=== PATIENT | female | born 1980 | race American Indian/Alaskan Native ===

== ENCOUNTER 2019-10-09 15:36 | Emergency (ER) | payer SELFPAY | END 2019-10-09 16:02 | disposition left against medical advice (07) | LOC: ED 15:36 | DX: R51 Headache (principal); Z53.21 Procedure and treatment not carried out due to patient leaving prior to being seen by health care provider ==

== ENCOUNTER 2020-02-07 20:38 | Emergency (ER) | payer MEDICAID ==
[2020-02-07 22:04] LABS: Basophils # (Auto) 0.1 K/mm3 (0.0-0.1); Basophils % (Auto) 0.8 % (0.0-1.8); Eosinophils # (Auto) 0.4 K/mm3 (0.0-0.4); Eosinophils % (Auto) 3.4 % (0.0-4.3); Hematocrit 34.7 % (30.3-42.9); Hemoglobin 11.5 gm/dl (10.1-14.3); Lymphocytes # (Auto) 3.6 K/mm3 (1.2-5.4); Lymphocytes % (Auto) 30.5 % (13.4-35.0); Mean Corpuscular HGB Conc 33 % (30-34); Mean Corpuscular Volume 85 fl (79-97); Monocytes # (Auto) 0.6 K/mm3 (0.0-0.8); Monocytes % (Auto) 5.3 % (0.0-7.3); Platelet Count 333 K/mm3 (140-440); Red Blood Count 4.08 M/mm3 (3.65-5.03); Red Cell Distribution Width 13.4 % (13.2-15.2)
[2020-02-07 22:59] LABS: Bilirubin,Urine NEG (Negative); Blood,Urine LG (Negative); Color,Urine Amber (Yellow); Mucus,Urine 2+ /HPF
[2020-02-08] MEDS ORDERED: ONDANSETRON 4 MG/2 ML INJ IV ONE (00:46)
[2020-02-08] MEDS ORDERED: SODIUM CHLORIDE 0.9% 1000 ML 1,000 ML IV ONE (00:46)
[2020-02-08] MEDS ORDERED: cefTRIAXone/NS 1 GM/50 ML 1 GM/50 ML BAG IV ONE (00:46)
[2020-02-08] MEDS ORDERED: MORPHINE 4 MG/1 ML INJ IV ONE (00:46)
--- NOTE | 2020-02-08 02:11 | Ultrasound Report ---
US OB <= 14 weeks fetus INDICATION / CLINICAL INFORMATION: Vaginal bleeding pain. COMPARISON: None available. FINDINGS: Uterus measures 7.9 x 3.8 x 6.4 cm. No intrauterine gestational sac is seen. The endometrial echo com plex measures 7-8 mm. There is a 1.5 cm right ovarian cyst. Left ovary is not visualized. No free fluid is seen. IMPRESSION: 1. No sonographic evidence of intrauterine . No adnexal lesions or free fluid. Signer Name: Jason Rutherford MD Signed: 02/08/2020 2:07 AM Workstation Name: [id number]
--- NOTE | 2020-02-08 02:24 | Emergency Department Report ---
ED Female HPI - General Chief complaint: Abdominal Pain Stated complaint: ABD PAIN/VAGINAL BLEEDING Time Seen by Provider: 02/08/20 00:45 Source: patient Mode of arrival: Ambulatory Limitations: No Limitations - History of Present Illness Initial comments: Patient is a 39-year-old female who presents for abdominal pain status post spontaneous 5 days ago. Patient states she was visiting family in [facility]. Had spontaneous in [place]. Did have a D&C on that date. States intermittent bleeding presents with abdominal cramping. Patient does have history of ovarian cyst. Pain is described as 7/10 aching sharp crampy. Patient advises not been sexually active since procedure. There is no urinary retention ,frequency ,urgency, or back pain noted. She denies fevers or chills. Patient is tolerating p.o. intake. Patient has upcoming [facility] appointment. MD Complaint: vaginal bleeding Onset/Timin -: days(s) Location: suprapubic Radiation: suprapubic Severity: moderate Severity scale (0 -10): 5 Quality: aching Consistency: constant Improves with: none Worsens with: movement Are you Now?: No Associated Symptoms: vaginal bleeding, abdominal pain - Related Data Sexually active: No : 2 Para: 0 A: 2 Previous Rx's Medication Instructions Recorded Last Taken Type Acetaminophen/Codeine [Tylenol #3] 1 tab PO Q6H PRN #20 tab 06/18/15 Unknown Rx Ibuprofen [Motrin 800 MG tab] 800 mg PO Q8HR PRN #30 tablet 06/18/15 Unknown Rx Acetaminophen/Codeine [Tylenol 1 tab PO Q6H PRN #12 tab 02/08/20 Unknown Rx /Codeine # 3 tab] Nitrofurantoin Petroleum/M-Cryst 100 mg PO Q12HR 7 Days #14 capsule 02/08/20 Unknown Rx [Macrobid CAP] Allergies Allergy/AdvReac Type Severity Reaction Status Date / Time ibuprofen Allergy Bleeding Verified 10/09/19 15:38 tramadol Allergy Itching Verified 10/09/19 15:38 ED Review of Systems ROS: Stated complaint: ABD PAIN/VAGINAL BLEEDING Other details as noted in HPI Constitutional: denies: chills, fever Eyes: denies: eye pain, eye discharge, vision change ENT: denies: ear pain, throat pain Respiratory: denies: cough, shortness of breath, wheezing Cardiovascular: denies: chest pain, palpitations Endocrine: no symptoms reported Gastrointestinal: abdominal pain. denies: nausea, vomiting, diarrhea Genitourinary: abnormal menses. denies: urgency, dysuria, frequency, hematuria, discharge Musculoskeletal: denies: back pain, joint swelling, arthralgia Skin: denies: rash, lesions Neurological: denies: headache, weakness, paresthesias Psychiatric: denies: anxiety, depression Hematological/Lymphatic: denies: easy bleeding, easy bruising ED Past Medical Hx - Past Medical History Previous Medical History?: Yes Hx Asthma: Yes Additional medical history: Fibromyalgia - Surgical History Past Surgical History?: Yes Additional Surgical History: x 2 - Social History Smoking Status: Current Every Day Smoker Substance Use Type: None - Medications Home Medications: Home Medications Medication Instructions Recorded Confirmed Last Taken Type Acetaminophen/Codeine [Tylenol #3] 1 tab PO Q6H PRN #20 tab 06/18/15 Unknown Rx Ibuprofen [Motrin 800 MG tab] 800 mg PO Q8HR PRN #30 tablet 06/18/15 Unknown Rx Acetaminophen/Codeine [Tylenol 1 tab PO Q6H PRN #12 tab 02/08/20 Unknown Rx /Codeine # 3 tab] Nitrofurantoin Petroleum/M-Cryst 100 mg PO Q12HR 7 Days #14 capsule 02/08/20 Unknown Rx [Macrobid CAP] ED Physical Exam - General Limitations: No Limitations General appearance: alert, in no apparent distress - Head Head exam: Present: atraumatic, normocephalic - Eye Eye exam: Present: normal appearance, EOMI Pupils: Present: normal accommodation - ENT ENT exam: Present: mucous membranes moist - Neck Neck exam: Present: normal inspection, full ROM. Absent: tenderness - Respiratory Respiratory exam: Present: normal lung sounds bilaterally. Absent: respiratory distress, wheezes, stridor - Cardiovascular Cardiovascular Exam: Present: regular rate, normal rhythm, normal heart sounds. Absent: systolic murmur, diastolic murmur, rubs, gallop - GI/Abdominal GI/Abdominal exam: Present: soft, tenderness (LLQ ), normal bowel sounds. Absent: distended, guarding, rebound, rigid, bruit, hernia - Rectal Rectal exam: Present: deferred - Extremities Exam Extremities exam: Present: normal inspection, normal capillary refill - Back Exam Back exam: Present: normal inspection, full ROM. Absent: tenderness, CVA tenderness (R), CVA tenderness (L), vertebral tenderness - Neurological Exam Neurological exam: Present: alert, oriented X3, CN II-XII intact, normal gait - Psychiatric Psychiatric exam: Present: normal affect, normal mood - Skin Skin exam: Present: warm, dry, intact, normal color. Absent: rash ED Course Vital Signs 02/07/20 21:26 Temperature 98.6 F Pulse Rate 92 H Respiratory 18 Rate Blood Pressure 150/84 O2 Sat by Pulse 100 Oximetry ED Medical Decision Making - Lab Data Result diagrams: 02/07/20 21:47 Labs 02/07/20 02/07/20 02/07/20 21:47 21:47 22:33 WBC 11.9 H RBC 4.08 Hgb 11.5 Hct 34.7 MCV 85 MCH 28 MCHC 33 RDW 13.4 Plt Count 333 Lymph % (Auto) 30.5 Petroleum % (Auto) 5.3 Eos % (Auto) 3.4 Baso % (Auto) 0.8 Lymph # 3.6 Petroleum # 0.6 Eos # 0.4 Baso # 0.1 Seg Neutrophils % 60.0 Seg Neutrophils # 7.1 HCG, Quant 925.9 H Urine Color Pamela Urine Turbidity Slightly-cloudy Urine pH 5.0 Ur Specific Frohna 1.028 Urine Protein 30 mg/dl Urine Glucose (UA) Neg Urine Ketones Tr Urine Blood Lg Urine Nitrite Neg Urine Bilirubin Neg Urine Urobilinogen 2.0 Ur Leukocyte Esterase Mod Urine WBC (Auto) 33.0 H Urine RBC (Auto) 50.0 U Epithel Cells (Auto) 6.0 Urine Mucus 2+ - Radiology Data Radiology results: report reviewed, image reviewed Findings Reporting MD: Jason Rutherford Dictation Time: February 08, 2020 01:07 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 COMPARISON: None available. FINDINGS: Uterus measures 7.9 x 3.8 x 6.4 cm. No intrauterine gestational sac is seen. The endometrial echo complex measures 7-8 mm. There is a 1.5 cm right ovarian cyst. Left ovary is not visualized. No free fluid is seen. IMPRESSION: 1. No sonographic evidence of intrauterine . No adnexal lesions or free fluid. Signer Name: Jason Rutherford MD Signed: 02/08/2020 1:07 AM Workstation Name: [id number] - Medical Decision Making Ultrasound normal no no mass. No ultrasound evidence of retained parts. UA noted for leukocytes, WBCs, RBCs. Patient treated for UTI. There is no fever no chills. Patient did declined vaginal exam. Advises will follow-up with [facility] in 2 days. Plan DC to home with prescriptions , patient verbalizes agreement and understanding of discharge plan. Critical care attestation.: If time is entered above; I have spent that time in minutes in the direct care of this critically ill patient, excluding procedure time. ED Disposition Clinical Impression: UTI (urinary tract infection) Qualifiers: Urinary tract infection type: acute cystitis Hematuria presence: without hematuria Qualified Code(s): N30.00 - Acute cystitis without hematuria Abdominal pain Qualifiers: Abdominal location: left lower quadrant Qualified Code(s): R10.32 - Left lower quadrant pain Disposition: DC-01 TO HOME OR SELFCARE Is pt being admited?: No Does the pt Need Aspirin: No Condition: Stable Instructions: Urinary Tract Infection in Women (ED), Acute Abdominal Pain (ED) Prescriptions: Nitrofurantoin Petroleum/M-Cryst [Macrobid CAP] 100 mg PO Q12HR 7 Days #14 capsule Acetaminophen/Codeine [Tylenol /Codeine # 3 tab] 1 tab PO Q6H PRN #12 tab PRN Reason: pain Referrals: [facility] [Provider Group] - 3-5 Days Forms: Work/School Release Form(ED) Time of Disposition: 02:33
[2020-02-08 03:42] VITALS: BP 139/86
== END 2020-02-08 02:45 | disposition home or self-care (01) ==
LOC: ED 20:38
DX: N39.0 Urinary tract infection, site not specified (principal); R10.2 Pelvic and perineal pain; J45.909 Unspecified asthma, uncomplicated; F17.200 Nicotine dependence, unspecified, uncomplicated; Z98.890 Other specified postprocedural states; Z79.1 Long term (current) use of non-steroidal anti-inflammatories (NSAID); Z79.899 Other long term (current) drug therapy; Z88.8 Allergy status to other drugs, medicaments and biological substances
CPT/HCPCS: 36415; 76801; 81001; 84702; 85025; 87086; 96365; 96375; 99284; J0696; J2270; J2405; J7030

== ENCOUNTER 2020-02-27 10:27 | Emergency (ER) | payer MEDICAID ==
--- NOTE | 2020-02-27 10:36 | Event Note ---
ED Screening Note ED Screening Note: 39-year-old female smoker with past medical history of pulmonary embolism and asthma reports a 3-day history of progressively worsening shortness of breath with associated lower extremity swelling and calf pain. Has not tried to take any at home medication does not have any albuterol. Presents to the emergency department breathless with dyspnea tachycardic speaking in partial sentences Lungs no wheezing but decreased breath sounds Heart tachycardic Case was discussed with the charge nurse there were no rooms are available we will place her in the ACC on monitor This initial assessment/diagnostic orders/clinical plan/treatment(s) is/are subject to change based on patients health status, clinical progression and re- assessment by fellow clinical providers in the ED. Further treatment and workup at subsequent clinical providers discretion. Patient/guardian urged not to elope from the ED as their condition may be serious if not clinically assessed and managed. Initial orders include:
[2020-02-27] MEDS ORDERED: IPRATROPIUM/ALBUTEROL SULFATE 3 ML AMPUL.NEB IH ONE (10:37)
[2020-02-27] MEDS ORDERED: dexAMETHasone 4 MG/ML VIAL IM ONE (10:37)
[2020-02-27] MEDS ORDERED: methylPREDNISolone Sod Succinate 125 MG/2 ML INJ IV ONE (10:50)
[2020-02-27] MEDS ORDERED: SODIUM CHLORIDE 0.9% 1000 ML 1,000 ML IV ONE (11:01)
--- NOTE | 2020-02-27 11:02 | Emergency Department Report ---
HPI - General Chief Complaint: Dyspnea/Respdistress Time Seen by Provider: 02/27/20 10:49 - HPI HPI: This is a 39-year-old female presents to the emergency department from home with complaint of a 2-day history of shortness of breath, wheezing, chest pain, and the patient says that she has been having some intermittent lower extremity leg swelling. She has a past medical history of asthma and is a tobacco smoker. She denies any illicit drug use. She says that at first she thought she was having gas pains so she tried some [id number] treatments for gas without any relief. Her shortness of breath worsens with exertion and her chest discomf ort worsens with respirations. No recent travel or sick contacts at home. No known exposure to anyone with Covid 19. ED Past Medical Hx - Past Medical History Previous Medical History?: Yes Hx Asthma: Yes Additional medical history: Fibromyalgia - Surgical History Past Surgical History?: Yes Additional Surgical History: x 2 - Social History Smoking Status: Current Every Day Smoker Substance Use Type: None - Medications Home Medications: Home Medications Medication Instructions Recorded Confirmed Last Taken Type Acetaminophen/Codeine [Tylenol #3] 1 tab PO Q6H PRN #20 tab 06/18/15 Unknown Rx Ibuprofen [Motrin 800 MG tab] 800 mg PO Q8HR PRN #30 tablet 06/18/15 Unknown Rx Acetaminophen/Codeine [Tylenol 1 tab PO Q6H PRN #12 tab 02/08/20 Unknown Rx /Codeine # 3 tab] Nitrofurantoin Addison/M-Cryst 100 mg PO Q12HR 7 Days #14 capsule 02/08/20 Unknown Rx [Macrobid CAP] ED Review of Systems ROS: Stated complaint: SOB/ASTHMA Other details as noted in HPI Comment: All other systems reviewed and negative Constitutional: denies: chills, fever Eyes: denies: eye pain, vision change ENT: denies: ear pain, throat pain Respiratory: cough, shortness of breath Cardiovascular: chest pain, edema Gastrointestinal: denies: abdominal pain, vomiting Genitourinary: denies: dysuria, discharge Musculoskeletal: denies: back pain, arthralgia Skin: denies: rash, lesions Neurological: denies: numbness, paresthesias Physical Exam - Physical Exam Vital Signs: Vital Signs 02/27/20 10:30 Temperature 97.9 F Pulse Rate 117 H Respiratory 20 Rate Blood Pressure 134/98 [Left] O2 Sat by Pulse 100 Oximetry Physical Exam: GENERAL: The patient is well-developed well-nourished. HENT: Normocephalic. Atraumatic. Patient has moist mucous membranes. EYES: Extraocular motions are intact. NECK: Supple. Trachea is midline. CHEST/LUNGS: Clear to auscultation. There is tachypnea but no accessory muscle use. No cough heard during examination. There is no respiratory distress noted. HEART/CARDIOVASCULAR: Regular. There is mild to moderate tachycardia. There is no murmur. ABDOMEN: Abdomen is soft, nontender. Patient has normal bowel sounds. SKIN: Skin is warm and dry. NEURO: The patient is awake, alert, and oriented. The patient is cooperative. The patient has no focal neurologic deficits. Normal speech. MUSCULOSKELETAL: There is no tenderness or deformity. There is no limitation range of motion. There is no evidence of acute injury. ED Course Vital Signs 02/27/20 10:30 Temperature 97.9 F Pulse Rate 117 H Respiratory 20 Rate Blood Pressure 134/98 [Left] O2 Sat by Pulse 100 Oximetry ED Medical Decision Making - Lab Data Result diagrams: 02/27/20 11:37 02/27/20 11:37 - EKG Data -: EKG Interpreted by Me EKG shows normal: sinus rhythm, axis, intervals, QRS complexes, ST-T waves Rate: tachycardia (107 bpm) - EKG Data When compared to previous EKG there are: previous EKG unavailable Interpretation: normal EKG (With mild tachycardia at 107 bpm) - Radiology Data Radiology results: report reviewed, image reviewed interpreted by me: Chest x-ray does not show any acute process. There are no pleural effusions, obvious pneumonia and there is no pneumothorax. DUPLEX DOPPLER LOWER EXTREMITY VEINS, BILATERAL INDICATION / CLINICAL INFORMATION: b/l LE pain and swelling. TECHNIQUE: Duplex doppler imaging was performed through the veins of both lower extremities using venous compression and other maneuvers. COMPARISON: None available. FINDINGS: Right Common Femoral vein: Negative. Right Femoral vein: Negative. Right Popliteal vein: Negative. Right Calf veins: Negative. Left Common Femoral vein: Negative. Left Femoral vein: Negative. Left Popliteal vein: Negative. Left Calf veins: Negative. Additional findings: None. IMPRESSION: 1. No sonographic evidence for DVT in either lower extremity. CTA CHEST WITH IV CONTRAST INDICATION: Shortness of breath, elevated d-dimer. TECHNIQUE: Axial CT images were obtained through the chest after injection of 100 cc Omnipaque 350 IV contrast. 3 plane MIP reconstructions were produced. All CT scans at this location are performed using CT dose reduction for ALARA by means of automated exposure control. COMPARISON: One view of the chest from earlier today. FINDINGS: PULMONARY ARTERIES: Well-opacified. Nonocclusive segmental and subsegmental thromboemboli are seen along the lower lobes. No saddle embolism or other significant abnormality. AORTA AND ARTERIES: No significant abnormality of the aorta or its visualized branches. MEDIASTINUM: Normal heart size without evidence of right heart strain. No significant pericardial effusion. No mass or lymphadenopathy. No significant abnormality of the thyroid gland or trachea/main bronchi. LUNGS: There are trace pleural effusions. No pneumothorax. There is probable mild bibasilar atelectasis. The lungs are otherwise clear. ADDITIONAL FINDINGS: None. UPPER ABDOMEN: No acute findings. BONES: No significant osseous abnormality. IMPRESSION: 1. Acute bilateral PTE as above without associated right heart strain. 2. Trace pleural effusions. - Medical Decision Making This is a patient who presented to the emergency department with a complaint of a 2-day history of nonspecific chest pain, shortness of breath, and the shortness of breath worsened with exertion and the chest pain worsened with respirations. She presents with some tachycardia and tachypnea. Heart and lung sounds are normal to auscultation. EKG did not show any morphology consistent with ST elevation CA. Chest x-ray did not show any pneumonia, pneumothorax, pleural effusions, or any other acute process. Due to her history of intermittent bilateral lower extremity swelling, the patient had a venous Doppler ultrasound that was negative for DVT in either lower extremity. The patient's labs were unremarkable except for an elevated d-dimer level of about 770. For this reason the patient had a CT angiography of the chest that shows bilateral lower lobe pulmonary emboli. I had a long discussion with the patient regarding this and about placing her on IV heparin. It turns out the patient does have a previous history of either DVT or PE and was on Xarelto until 1 or 2 months ago. The patient has been accepted for admission by the hospitalist service. Critical Care Time: Yes Critical care time in (mins) excluding proc time.: 35 Critical care attestation.: If time is entered above; I have spent that time in minutes in the direct care of this critically ill patient, excluding procedure time. Critical care time was spent on this patient in doing her initial evaluation, multiple re- evaluations, ordering and interpretation of labs and imaging, IV heparin for treatment of the PTE, breathing treatments and IV analgesia. Critical Care Time: 35 minutes ED Disposition Clinical Impression: Bilateral pulmonary embolism Dyspnea Qualifiers: Dyspnea type: shortness of breath Qualified Code(s): R06.02 - Shortness of breath; R06.00 - Dyspnea, unspecified; R06.01 - Orthopnea Chest pain Qualifiers: Chest pain type: unspecified Qualified Code(s): R07.9 - Chest pain, unspecified Disposition: -07 LEFT AGAINST MED ADVICE Is pt being admited?: Yes Condition: Serious Time of Disposition: 13:56
--- NOTE | 2020-02-27 11:43 | XRay Report ---
CHEST 1 VIEW 02/27/2020 10:26 AM INDICATION / CLINICAL INFORMATION: SOB. COMPARISON: None available. FINDINGS: SUPPORT DEVICES: None. HEART / MEDIASTINUM: No significant abnormality. LUNGS / PLEURA: No significant pulmonary or pleural abnormality. No pneumothorax. ADDITIONAL FINDINGS: No significant additional findings. IMPRESSION: 1. No acute findings. Signer Name: Nolan Vincent MD Signed: 02/27/2020 11:38 AM Workstation Name: [id number]
[2020-02-27 11:52] LABS: Basophils # (Auto) 0.1 K/mm3 (0.0-0.1); Eosinophils # (Auto) 0.2 K/mm3 (0.0-0.4); Eosinophils % (Auto) 2.1 % (0.0-4.3); Hematocrit 37.2 % (30.3-42.9); Hemoglobin 12.7 gm/dl (10.1-14.3); Lymphocytes # (Auto) 2.2 K/mm3 (1.2-5.4); Lymphocytes % (Auto) 28.2 % (13.4-35.0); Mean Corpuscular HGB Conc 34 % (30-34); Mean Corpuscular Volume 85 fl (79-97); Monocytes # (Auto) 0.5 K/mm3 (0.0-0.8); Monocytes % (Auto) 5.9 % (0.0-7.3); Platelet Count 318 K/mm3 (140-440); Red Blood Count 4.37 M/mm3 (3.65-5.03); Red Cell Distribution Width 14.1 % (13.2-15.2)
[2020-02-27 12:13] LABS: BUN/Creatinine Ratio 13; Blood Urea Nitrogen 8 mg/dL (7-17); Calcium 9.3 mg/dL (8.4-10.2); Hemolysis Index 0
--- NOTE | 2020-02-27 12:45 | Vascular Lab Report ---
DUPLEX DOPPLER LOWER EXTREMITY VEINS, BILATERAL INDICATION / CLINICAL INFORMATION: b/l LE pain and swelling. TECHNIQUE: Duplex doppler imaging was performed through the veins of both lower extremities using venous mallory george and other maneuvers. COMPARISON: None available. FINDINGS: Right Common Femoral vein: Negative. Right Femoral vein: Negative. Right Popliteal vein: Negative. Right Calf veins: Negative. Left Common Femoral vein: Negative. Left Femoral vein: Negative. Left Popliteal vein: Negative. Left Calf veins: Negative. Additional findings: None. IMPRESSION: 1. No sonographic evidence for DVT in either lower extremity. Signer Name: Aram Serra MD Signed: 02/27/2020 12:41 PM Workstation Name: [id number]
[2020-02-27 12:59] VITALS: BP 119/71
--- NOTE | 2020-02-27 13:49 | Cat Scan Report ---
CTA CHEST WITH IV CONTRAST INDICATION: Shortness of breath, elevated d-dimer. TECHNIQUE: Axial CT images were obtained through the chest after injection of 100 cc Omnipaque 350 IV contrast. 3 plane MIP reconstructions were produced. All CT scans at this location are performed using CT dose reduction for ALARA by means of automated exposure control. COMPARISON: One view of the chest from earlier today. FINDINGS: PULMONARY ARTERIES: Well-opacified. Nonocclusive segmental and subsegmental thromboemboli are seen al lazara the lower lobes. No saddle embolism or other significant abnormality. AORTA AND ARTERIES: No significant abnormality of the aorta or its visualized branches. MEDIASTINUM: Normal heart size without evidence of right heart strain. No significant pericardial eff usion. No mass or lymphadenopathy. No significant abnormality of the thyroid gland or trachea/main br onchi. LUNGS: There are trace pleural effusions. No pneumothorax. There is probable mild bibasilar atelectas is. The lungs are otherwise clear. ADDITIONAL FINDINGS: None. UPPER ABDOMEN: No acute findings. BONES: No significant osseous abnormality. IMPRESSION: 1. Acute bilateral PTE as above without associated right heart strain. 2. Trace pleural effusions. CRITICAL RESULT: Time of Discovery (RECREATIONAL THERAPIST/CDT): 12:40 Time of Communication (RECREATIONAL THERAPIST/CDT): 12:43 Licensed Practitioner Receiving Report: Dr. Barreto Read Back Performed: Yes. Signer Name: Ciro Schultz MD Signed: 02/27/2020 1:44 PM Workstation Name: [id number]
[2020-02-27] MEDS ORDERED: MORPHINE 4 MG/1 ML INJ IV ONE (13:56)
[2020-02-27] MEDS ORDERED: HEPARIN 10,000 UNITS/10 ML VIAL IV ONE (13:57)
[2020-02-27] MEDS ORDERED: HEPARIN/ 0.45% NACL DRIP 25,000 UNIT/500 ML BAG IV SCH (14:00)
[2020-02-27 14:18] LABS: INR 1.01 (0.87-1.13)
[2020-02-27 14:26] LABS: Partial Thromboplastin Time > 240.0 Sec. (24.2-36.6)
--- NOTE | 2020-02-27 15:14 | Event Note ---
Date: 02/27/20 Nurse Nigel called to inform Dr. Grewal that the patient wants to leave AMA. Dr. Grewal offered to write for anticoagulation PO but the patient still left AMA. Importance of staying for admission stressed by RN and Dr. Grewal.
== END 2020-02-27 14:50 | disposition left against medical advice (07) ==
LOC: ED 10:27 → UNDOADMIN 13:56 → 4A 13:56 → UNDODISIN 14:50 → ED 14:50
DX: I26.09 Other pulmonary embolism with acute cor pulmonale (principal); F17.200 Nicotine dependence, unspecified, uncomplicated; J45.909 Unspecified asthma, uncomplicated; Z79.899 Other long term (current) drug therapy; Z88.6 Allergy status to analgesic agent
CPT/HCPCS: 36415; 71045; 71275; 80048; 83880; 84484; 84703; 85025; 85379; 85610; 85730; 93005; 93970; 94640; 96374; 99285; J2930; J7030; Q9967; 94644; G0378

== ENCOUNTER 2020-06-26 23:14 | Emergency (ER) | payer MEDICAID ==
[2020-06-26] MEDS ORDERED: ONDANSETRON 4 MG ODT TAB PO ONE (23:45)
[2020-06-26] MEDS ORDERED: oxyCODONE /ACETAMINOPHEN 5-325MG TAB PO ONE (23:45)
--- NOTE | 2020-06-26 23:50 | Emergency Department Report ---
ED Chest Pain HPI - General Chief Complaint: Chest Pain Stated Complaint: CHEST PAINS Time Seen by Provider: 06/26/20 23:40 Source: patient Mode of arrival: Ambulatory Limitations: No Limitations - History of Present Illness Initial Comments: Chief complaint: Chest pain back pain HPI: This is a 39-year-old female with history of asthma, pulmonary embolism, fibromyalgia who presents with left-sided chest pain mid upper central back pain. She is concerned that she may have a pinched nerve causing the back pain. She has left sided chest pain. Pain is tender to touch. Chest pain dull constant. No radiation. Pain is worse with inspiration and movement. Home medications: Xarelto, gabapentin Back pain appears unrelated to chest pain. Upper back pain is sharp. Tender to palpation. No radiation. Constant. Pain is worse with movement and a mbulation. She denies weakness in her extremities. MD Complaint: chest pain -: Gradual, days(s) (2) Onset: during rest Pain Location: left chest Severity: moderate Quality: dull Consistency: constant Improves With: nothing Worsens With: inspiration, movement - Related Data Previous Rx's Medication Instructions Recorded Last Taken Type Acetaminophen/Codeine [Tylenol #3] 1 tab PO Q6H PRN #20 tab 06/18/15 Unknown Rx Ibuprofen [Motrin 800 MG tab] 800 mg PO Q8HR PRN #30 tablet 06/18/15 Unknown Rx Acetaminophen/Codeine [Tylenol 1 tab PO Q6H PRN #12 tab 02/08/20 Unknown Rx /Codeine # 3 tab] Nitrofurantoin [place]/M-Cryst 100 mg PO Q12HR 7 Days #14 capsule 02/08/20 Unknown Rx [Macrobid CAP] HYDROcodone/APAP 5-325 [[place] 1 each PO Q6HR PRN #10 tablet 06/27/20 Unknown Rx 5/325] Allergies Allergy/AdvReac Type Severity Reaction Status Date / Time ibuprofen Allergy Bleeding Verified 10/09/19 15:38 tramadol Allergy Itching Verified 10/09/19 15:38 Heart Score - HEART Score History: Slightly suspicious EKG: Normal Age: < 45 Risk factors: 1-2 risk factors Troponin: < normal limit HEART Score: 1 ED Review of Systems ROS: Stated complaint: CHEST PAINS Other details as noted in HPI Comment: All other systems reviewed and negative Constitutional: denies: fever, malaise Respiratory: denies: cough, shortness of breath Cardiovascular: chest pain Gastrointestinal: denies: abdominal pain Musculoskeletal: back pain ED Past Medical Hx - Past Medical History Previous Medical History?: Yes Hx Pulmonary Embolism: Yes Hx Asthma: Yes Additional medical history: Fibromyalgia - Surgical History Past Surgical History?: Yes Additional Surgical History: x 2 - Social History Smoking Status: Current Every Day Smoker Substance Use Type: None - Medications Home Medications: Home Medications Medication Instructions Recorded Confirmed Last Taken Type Acetaminophen/Codeine [Tylenol #3] 1 tab PO Q6H PRN #20 tab 06/18/15 Unknown Rx Ibuprofen [Motrin 800 MG tab] 800 mg PO Q8HR PRN #30 tablet 06/18/15 Unknown Rx Acetaminophen/Codeine [Tylenol 1 tab PO Q6H PRN #12 tab 02/08/20 Unknown Rx /Codeine # 3 tab] Nitrofurantoin [place]/M-[place] 100 mg PO Q12HR 7 Days #14 capsule 02/08/20 Unknown Rx [Macrobid CAP] HYDROcodone/APAP 5-325 [[place] 1 each PO Q6HR PRN #10 tablet 06/27/20 Unknown Rx 5/325] ED Physical Exam - General Limitations: No Limitations General appearance: alert, in no apparent distress - Head Head exam: Present: atraumatic, normocephalic - Eye Eye exam: Present: normal appearance - ENT ENT exam: Present: mucous membranes moist - Neck Neck exam: Present: normal inspection, full ROM - Respiratory Respiratory exam: Present: normal lung sounds bilaterally. Absent: respiratory distress, wheezes, rales, rhonchi - Cardiovascular Cardiovascular Exam: Present: regular rate, normal rhythm, normal heart sounds. Absent: systolic murmur, diastolic murmur, rubs, gallop - GI/Abdominal GI/Abdominal exam: Present: soft, normal bowel sounds. Absent: distended, tenderness, guarding, rebound - Extremities Exam Extremities exam: Present: normal inspection - Neurological Exam Neurological exam: Present: alert, oriented X3, normal gait - Psychiatric Psychiatric exam: Present: normal affect, normal mood - Skin Skin exam: Present: warm, dry, intact, normal color. Absent: rash ED Course Vital Signs 06/26/20 06/27/20 06/27/20 23:18 00:10 00:16 Temperature 98.8 F Pulse Rate 88 81 81 Respiratory 18 16 23 Rate Blood Pressure 136/89 150/81 O2 Sat by Pulse 100 Oximetry 06/27/20 06/27/20 06/27/20 00:30 00:45 01:01 Temperature Pulse Rate 81 86 77 Respiratory 14 29 H 26 H Rate Blood Pressure 150/81 129/73 O2 Sat by Pulse 97 97 96 Oximetry 06/27/20 06/27/20 06/27/20 01:15 01:31 01:45 Temperature Pulse Rate 82 Respiratory 25 H Rate Blood Pressure 129/73 129/73 129/73 O2 Sat by Pulse 98 97 97 Oximetry 06/27/20 06/27/20 06/27/20 02:00 02:15 02:43 Temperature Pulse Rate Respiratory Rate Blood Pressure 131/83 131/83 131/83 O2 Sat by Pulse 97 97 100 Oximetry 06/27/20 06/27/20 06/27/20 02:45 03:01 03:15 Temperature Pulse Rate 76 78 75 Respiratory 16 14 23 Rate Blood Pressure 131/83 113/59 131/83 O2 Sat by Pulse 100 97 98 Oximetry 06/27/20 06/27/20 03:31 03:45 Temperature Pulse Rate 78 73 Respiratory 20 20 Rate Blood Pressure 131/83 131/83 O2 Sat by Pulse 99 98 Oximetry ARMAND score - Armand Score Aspirin use within the Past 7 Days: (0) No ED Medical Decision Making - Lab Data Result diagrams: 06/27/20 Unknown 06/26/20 23:45 - EKG Data EKG shows normal: sinus rhythm, axis, QRS complexes, ST-T waves Rate: normal - EKG Data Interpretation: normal EKG 06/27/20 00:15 EKG obtained 2327 EKG interpreted by wv Normal sinus rhythm rate 85 bpm normal axis prolonged AR interval normal QTC no ST elevation right bundle branch block 06/27/20 00:16 06/27/20 00:17 EKG unchanged from February 2020 - Radiology Data Radiology results: report reviewed Chest radiograph: No acute findings CTA CHEST WITH IV CONTRAST INDICATION: Chest pain, back pain, history of PE. TECHNIQUE: Axial CT images were obtained through the chest after injection of 100 mL Omnipaque 350 IV contrast. 3 plane MIP reconstructions were produced. All CT scans at this location are performed using CT dose reduction for ALARA by means of automated exposure control. COMPARISON: CTA chest on 02/27/2020 FINDINGS: Pulmonary Arteries: No pulmonary emboli. Pulmonary emboli seen on the previous exam have resolved. Lungs: There is a tiny right pleural effusion. There is no additional pulmonary abnormality. Trachea and Bronchi: No significant abnormality. Heart and Pericardium: No significant abnormality. Vasculature: No significant abnormality. Lymphatics: No lymphadenopathy. Additional Findings: None. Upper Abdomen: No acute findings. Skeletal Structures: No acute findings or aggressive bone lesions. IMPRESSION: 1. No CT evidence for pulmonary embolism. 2. Tiny right pleural effusion without additional significant pulmonary abnormality. - Medical Decision Making 1. Chest pain: Atypical for ACS. CT angiogram will be obtained to rule out new pulmonary embolism. If CT angiogram unremarkable, suspect chest wall pain. Heart score 1. Outpatient cardiac risk stratification would be low yield. 2. Back pain: No red flags such as trauma, weight loss, neurological symptoms, fever, steroid use. Differential diagnosis includes: Muscle strain, pain related to fibromyalgia Critical care attestation.: If time is entered above; I have spent that time in minutes in the direct care of this critically ill patient, excluding procedure time. ED Disposition Clinical Impression: Back pain, Chest pain, History of pulmonary embolism Disposition: - TO HOME OR SELFCARE Is pt being admited?: No Does the pt Need Aspirin: No Condition: Stable Instructions: Chest Pain (ED) Prescriptions: HYDROcodone/APAP 5-325 [[place] 5/325] 1 each PO Q6HR PRN #10 tablet PRN Reason: Pain Referrals: DAVID MAINMERRY [place] MD NAHUM [Primary Care Provider] - 3-5 Days BRIE ALARCON MD [Staff Physician] - 3-5 Days
[2020-06-26] MEDS ORDERED: ONDANSETRON 4 MG/2 ML INJ IV ONE (23:52)
[2020-06-26] MEDS ORDERED: MORPHINE 4 MG/1 ML INJ IV ONE (23:52)
--- NOTE | 2020-06-26 23:52 | XRay Report ---
CHEST 1 VIEW 06/26/2020 11:49 PM INDICATION / CLINICAL INFORMATION: Chest Pain. COMPARISON: 03/05/2020 FINDINGS: SUPPORT DEVICES: None. HEART / MEDIASTINUM: No significant abnormality. LUNGS / PLEURA: No significant pulmonary or pleural abnormality. No pneumothorax. ADDITIONAL FINDINGS: No significant additional findings. IMPRESSION: 1. No acute findings. Signer Name: Sushil Lockett MD Signed: 06/26/2020 11:47 PM Workstation Name: [email or web address]
[2020-06-27 00:41] LABS: Blood Urea Nitrogen 8 mg/dL (7-17); Calcium 9.1 mg/dL (8.4-10.2); Hemolysis Index 9
[2020-06-27 00:45] LABS: BUN/Creatinine Ratio 13
[2020-06-27 01:12] LABS: Basophils # (Auto) 0.1 K/mm3 (0.0-0.1); Basophils % (Auto) 0.6 % (0.0-1.8); Eosinophils # (Auto) 0.3 K/mm3 (0.0-0.4); Eosinophils % (Auto) 3.3 % (0.0-4.3); Hematocrit 34.5 % (30.3-42.9); Hemoglobin 11.7 gm/dl (10.1-14.3); Lymphocytes # (Auto) 3.2 K/mm3 (1.2-5.4); Mean Corpuscular HGB Conc 34 % (30-34); Mean Corpuscular Volume 86 fl (79-97); Monocytes # (Auto) 0.6 K/mm3 (0.0-0.8); Monocytes % (Auto) 6.1 % (0.0-7.3); Platelet Count 323 K/mm3 (140-440); Red Blood Count 4.02 M/mm3 (3.65-5.03); Red Cell Distribution Width 13.9 % (13.2-15.2)
[2020-06-27] MEDS ORDERED: ONDANSETRON 4 MG ODT TAB ONE (02:10)
[2020-06-27] MEDS ORDERED: MORPHINE 4 MG/1 ML INJ ONE (02:11)
[2020-06-27] MEDS ORDERED: ONDANSETRON 4 MG/2 ML INJ ONE (02:11)
[2020-06-27] MEDS ORDERED: oxyCODONE /ACETAMINOPHEN 5-325MG TAB ONE (02:12)
--- NOTE | 2020-06-27 03:08 | Cat Scan Report ---
CTA CHEST WITH IV CONTRAST INDICATION: Chest pain, back pain, history of PE. TECHNIQUE: Axial CT images were obtained through the chest after injection of 100 mL Omnipaque 350 IV contrast. 3 plane MIP reconstructions were produced. All CT scans at this location are performed using CT dose reduction for ALARA by means of automated exposure control. COMPARISON: CTA chest on 02/27/2020 FINDINGS: Pulmonary Arteries: No pulmonary emboli. Pulmonary emboli seen on the previous exam have resolved. Lungs: There is a tiny right pleural effusion. There is no additional pulmonary abnormality. Trachea and Bronchi: No significant abnormality. Heart and Pericardium: No significant abnormality. Vasculature: No significant abnormality. Lymphatics: No lymphadenopathy. Additional Findings: None. Upper Abdomen: No acute findings. Skeletal Structures: No acute findings or aggressive bone lesions. IMPRESSION: 1. No CT evidence for pulmonary embolism. 2. Tiny right pleural effusion without additional significant pulmonary abnormality. Signer Name: Sushil Lockett MD Signed: 06/27/2020 3:04 AM Workstation Name: [id number]
[2020-06-27 04:47] VITALS: BP 131/83
== END 2020-06-27 04:20 | disposition home or self-care (01) ==
LOC: ED 23:14
DX: R07.89 Other chest pain (principal); M54.6 Pain in thoracic spine; Z86.711 Personal history of pulmonary embolism; J45.909 Unspecified asthma, uncomplicated; F17.200 Nicotine dependence, unspecified, uncomplicated; Z98.890 Other specified postprocedural states; Z79.1 Long term (current) use of non-steroidal anti-inflammatories (NSAID); Z79.899 Other long term (current) drug therapy; Z88.8 Allergy status to other drugs, medicaments and biological substances
CPT/HCPCS: 36415; 71045; 71275; 80048; 84484; 84703; 85025; 93005; 96374; 96375; 99285; J2270; J2405; Q9967; Q0162

== ENCOUNTER 2020-08-27 18:45 | Emergency (ER) | payer MEDICAID ==
[2020-08-27 19:01] VITALS: BP 147/83
--- NOTE | 2020-08-27 19:12 | Event Note ---
ED Screening Note Date of service: 08/27/20 Time: 19:10 ED Screening Note: 39-year-old -[place] female presents to the ER for shortness of breath x4 days. Patient has a history of pulmonary embolism and is currently on Xarelto. Complains of both legs swelling. This initial assessment/diagnostic orders/clinical plan/treatment(s) is/are subject to change based on patients health status, clinical progression and re- assessment by fellow clinical providers in the ED. Further treatment and workup at subsequent clinical providers discretion. Patient/guardian urged not to elope from the ED as their condition may be serious if not clinically assessed and managed. Initial orders include:
[2020-08-27 19:46] LABS: Basophils # (Auto) 0.1 K/mm3 (0.0-0.1); Basophils % (Auto) 0.6 % (0.0-1.8); Eosinophils # (Auto) 0.3 K/mm3 (0.0-0.4); Eosinophils % (Auto) 3.6 % (0.0-4.3); Hematocrit 35.3 % (30.3-42.9); Hemoglobin 11.7 gm/dl (10.1-14.3); Lymphocytes # (Auto) 4.1 K/mm3 (1.2-5.4); Lymphocytes % (Auto) 48.7 % (13.4-35.0); Mean Corpuscular HGB Conc 33 % (30-34); Mean Corpuscular Volume 85 fl (79-97); Monocytes # (Auto) 0.4 K/mm3 (0.0-0.8); Platelet Count 316 K/mm3 (140-440); Red Blood Count 4.13 M/mm3 (3.65-5.03); Red Cell Distribution Width 14.7 % (13.2-15.2)
[2020-08-27 20:06] LABS: Alanine Aminotransferase 11 units/L (7-56); Albumin 4.1 g/dL (3.9-5); BUN/Creatinine Ratio 9; Blood Urea Nitrogen 9 mg/dL (7-17); Calcium 8.7 mg/dL (8.4-10.2); Hemolysis Index 23
--- NOTE | 2020-08-27 21:24 | XRay Report ---
CHEST 2 VIEWS INDICATION / CLINICAL INFORMATION: sob,cough and rales. COMPARISON: 06/26/2020 FINDINGS: SUPPORT DEVICES: None. HEART / MEDIASTINUM: Stable. LUNGS / PLEURA: No significant pulmonary or pleural abnormality. No pneumothorax. ADDITIONAL FINDINGS: No significant additional findings. IMPRESSION: 1. No acute findings. No significant interval change since 06/26/2020 Signer Name: Ronnie López MD Signed: 08/27/2020 9:19 PM Workstation Name: [id number]
--- NOTE | 2020-08-28 02:28 | Emergency Department Report ---
ED General Adult HPI - General Chief complaint: Dyspnea/Respdistress Stated complaint: LEFT SIDE WEAKNESS/SOB Source: patient Mode of arrival: Ambulatory Limitations: No Limitations - History of Present Illness Initial comments: Patient is 39-year-old -Beninese female with a history of PE, fibromyalgia and asthma who presents to the ED with acute onset persistent shortness of breath, diffuse right-sided chest pain and right flank pain for the last 1 week, worse in the last 2 days. Patient states that she is currently on Xarelto but scared that the symptoms are similar to what she felt when she was initially diagnosed with PE 8 months ago. Patient denies dizziness, syncope, palpitations, fever, chills, cough, nausea, vomiting, diarrhea, abdominal pain, sore throat, headache, nasal and sinus congestion, diaphoresis or neck pain. MD Complaint: dyspnea, chest pain, diffuse body aches and pain -: Sudden, week(s) (1) Location: head Radiation: non-radiation Severity scale (0 -10): 6 Quality: aching, sharp Consistency: constant Improves with: none Worsens with: movement Associated Symptoms: denies other symptoms, chest pain (right-sided), loss of appetite, nausea/vomiting, shortness of breath. denies: confusion, cough, diaphoresis, fever/chills, headaches, malaise Treatments Prior to Arrival: none - Related Data Previous Rx's Medication Instructions Recorded Last Taken Type Acetaminophen/Codeine [Tylenol #3] 1 tab PO Q6H PRN #20 tab 06/18/15 Unknown Rx Ibuprofen [Motrin 800 MG tab] 800 mg PO Q8HR PRN #30 tablet 06/18/15 Unknown Rx Acetaminophen/Codeine [Tylenol 1 tab PO Q6H PRN #12 tab 02/08/20 Unknown Rx /Codeine # 3 tab] Nitrofurantoin [place]/M-Cryst 100 mg PO Q12HR 7 Days #14 capsule 02/08/20 Unknown Rx [Macrobid CAP] HYDROcodone/APAP 5-325 [[place] 1 each PO Q6HR PRN #10 tablet 06/27/20 Unknown Rx 5/325] Allergies Allergy/AdvReac Type Severity Reaction Status Date / Time ibuprofen Allergy Bleeding Verified 10/09/19 15:38 tramadol Allergy Itching Verified 10/09/19 15:38 ED Review of Systems ROS: Stated complaint: LEFT SIDE WEAKNESS/SOB Other details as noted in HPI Constitutional: denies: chills, fever Eyes: denies: eye pain, eye discharge, vision change ENT: denies: ear pain, throat pain Respiratory: shortness of breath. denies: cough, wheezing Cardiovascular: chest pain (right-sided chest pain). denies: palpitations Endocrine: no symptoms reported Gastrointestinal: abdominal pain, nausea, vomiting. denies: diarrhea Genitourinary: denies: urgency, dysuria, discharge Musculoskeletal: denies: back pain, joint swelling, arthralgia Skin: denies: rash, lesions Neurological: denies: headache, weakness, paresthesias Psychiatric: denies: anxiety, depression Hematological/Lymphatic: denies: easy bleeding, easy bruising ED Past Medical Hx - Past Medical History Previous Medical History?: Yes Hx Pulmonary Embolism: Yes Hx Asthma: Yes Additional medical history: Fibromyalgia - Surgical History Additional Surgical History: x 2 - Social History Smoking Status: Never Smoker Substance Use Type: None - Medications Home Medications: Home Medications Medication Instructions Recorded Confirmed Last Taken Type Acetaminophen/Codeine [Tylenol #3] 1 tab PO Q6H PRN #20 tab 06/18/15 Unknown Rx Ibuprofen [Motrin 800 MG tab] 800 mg PO Q8HR PRN #30 tablet 06/18/15 Unknown Rx Acetaminophen/Codeine [Tylenol 1 tab PO Q6H PRN #12 tab 02/08/20 Unknown Rx /Codeine # 3 tab] Nitrofurantoin [place]/M-Cryst 100 mg PO Q12HR 7 Days #14 capsule 02/08/20 Unknown Rx [Macrobid CAP] HYDROcodone/APAP 5-325 [[place] 1 each PO Q6HR PRN #10 tablet 06/27/20 Unknown Rx 5/325] ED Physical Exam - General Limitations: No Limitations General appearance: alert, in no apparent distress - Head Head exam: Present: atraumatic, normocephalic, normal inspection - Eye Eye exam: Present: normal appearance, PERRL, EOMI Pupils: Present: normal accommodation - ENT ENT exam: Present: normal exam, normal orophraynx, mucous membranes moist, TM's normal bilaterally, normal external ear exam - Neck Neck exam: Present: normal inspection, full ROM - Respiratory Respiratory exam: Present: normal lung sounds bilaterally. Absent: respiratory distress, wheezes, rales, rhonchi, stridor, chest wall tenderness, accessory muscle use - Cardiovascular Cardiovascular Exam: Present: regular rate, normal rhythm, normal heart sounds. Absent: systolic murmur, diastolic murmur, rubs, gallop - GI/Abdominal GI/Abdominal exam: Present: soft, normal bowel sounds. Absent: tenderness, guarding, rebound, hyperactive bowel sounds, hypoactive bowel sounds, organomegaly, mass, pulsatile mass - Extremities Exam Extremities exam: Present: normal inspection, full ROM, normal capillary refill - Back Exam Back exam: Present: normal inspection, full ROM. Absent: tenderness, CVA tenderness (L), muscle spasm, paraspinal tenderness, vertebral tenderness - Neurological Exam Neurological exam: Present: alert, oriented X3, CN II-XII intact, normal gait, reflexes normal - Psychiatric Psychiatric exam: Present: normal affect, normal mood, anxious - Skin Skin exam: Present: warm, dry, intact, normal color. Absent: rash ED Course Vital Signs 08/27/20 18:52 Temperature 98.5 F Pulse Rate 83 Respiratory 18 Rate Blood Pressure 147/83 O2 Sat by Pulse 100 Oximetry ED Medical Decision Making - Lab Data Result diagrams: 08/27/20 19:29 08/27/20 19:29 - Radiology Data Radiology results: report reviewed, image reviewed Findings [address] [address] XRay Report Signed Patient: POLI GUERRERO MR#: [id number] : 1980 Acct:[id number] Age/Sex: 39 / F ADM Date: 08/27/20 Loc: ED Attending Dr: Ordering Physician: YOLA VALENZUELA Date of Service: 08/27/20 Procedure(s): XR chest routine 2V Accession Number(s): [id number] cc: YOLA VALENZUELA Fluoro Time In Minutes: CHEST 2 VIEWS INDICATION / CLINICAL INFORMATION: sob,cough and rales. COMPARISON: 06/26/2020 FINDINGS: SUPPORT DEVICES: None. HEART / MEDIASTINUM: Stable. LUNGS / PLEURA: No significant pulmonary or pleural abnormality. No pneumothorax. ADDITIONAL FINDINGS: No significant additional findings. IMPRESSION: 1. No acute findings. No significant interval change since 06/26/2020 Signer Name: Ronnie Schmid MD Signed: 08/27/2020 9:19 PM Workstation Name: [id number] Transcribed By: CH Dictated By: RONNIE SCHMID Electronically Authenticated By: RONNIE SCHMID Signed Date/Time: 08/27/202118 DD/ 18 TD/TT: - Medical Decision Making This is 39-year-old -[place] female with a history of PE, fibromyalgia and asthma who presents to the ED with acute onset persistent shortness of breath, diffuse right-sided chest pain and right flank pain for the last 1 week, worse in the last 2 days. Patient states that she is currently on Xarelto but scared that the symptoms are similar to what she felt when she was initially diagnosed with PE 8 months ago. In the ED, patient is alert and oriented x3 and is not in any distress. Vital signs are stable. Chest x-ray shows no acute cardiopulmonary abnormalities or pneumonitis. Lab test results were reviewed and showed mild hyponatremia 134 mmol/L. The rest of the lab test results are nonactionable. Patient the patient's history, physical exam findings, CT angiogram for PE rule out was ordered. Patient however eloped from the ED prior to the initiation of the CTA for PE rule out. - Differential Diagnosis Pneumonia; ACS; PE; Anxiety; Bronchitis; Muscle strain Critical care attestation.: If time is entered above; I have spent that time in minutes in the direct care of this critically ill patient, excluding procedure time. ED Disposition Clinical Impression: Shortness of breath, Nonspecific chest pain Disposition: ELOPED Is pt being admited?: No Does the pt Need Aspirin: No Condition: Stable Instructions: Chest Pain (ED), Shortness of Breath, Adult, [id number], Nonspecific Chest Pain, Adult, [id number] Referrals: SHERRON MARTINEZ NP [Primary Care Provider] - 3-5 Days Time of Disposition: 01:10 Print Language: KENYAN
== END 2020-08-28 01:00 | disposition left against medical advice (07) ==
LOC: ED 18:45
DX: R06.02 Shortness of breath (principal); R07.89 Other chest pain; J45.909 Unspecified asthma, uncomplicated; Z98.890 Other specified postprocedural states; Z79.899 Other long term (current) drug therapy; Z88.8 Allergy status to other drugs, medicaments and biological substances
CPT/HCPCS: 36415; 71046; 80053; 83880; 84484; 84702; 85025; 93005; 99283

== ENCOUNTER 2020-09-03 17:16 | Emergency (ER) | payer MEDICAID ==
[2020-09-03 17:51] VITALS: BP 141/81
[2020-09-03 18:33] LABS: Alanine Aminotransferase 13 units/L (7-56); Albumin 4.3 g/dL (3.9-5); BUN/Creatinine Ratio 13; Blood Urea Nitrogen 9 mg/dL (7-17); Calcium 9.5 mg/dL (8.4-10.2); Hemolysis Index 10
[2020-09-03 19:09] LABS: Hematocrit 35.5 % (30.3-42.9); Hemoglobin 11.7 gm/dl (10.1-14.3); Mean Corpuscular HGB Conc 33 % (30-34); Mean Corpuscular Volume 85 fl (79-97); Platelet Count 334 K/mm3 (140-440); Red Blood Count 4.18 M/mm3 (3.65-5.03); Red Cell Distribution Width 15.3 % (13.2-15.2)
[2020-09-03 19:56] LABS: Total Cells Counted 100
[2020-09-03 19:58] LABS: Basophils % (Manual) 0 % (0.0-1.8); Monocytes % (Manual) 0 % (0.0-7.3)
[2020-09-03 20:02] LABS: Platelet Estimate Consistent w Auto
[2020-09-03 20:03] LABS: Anisocytosis Few; Large Platelets Few
== END 2020-09-03 20:00 | disposition left against medical advice (07) ==
LOC: ED 17:16
DX: R10.9 Unspecified abdominal pain (principal); N93.9 Abnormal uterine and vaginal bleeding, unspecified; Z53.21 Procedure and treatment not carried out due to patient leaving prior to being seen by health care provider
CPT/HCPCS: 36415; 80053; 84703; 85007; 85025

== ENCOUNTER 2020-11-05 10:08 | Emergency (ER) | payer MEDICAID ==
[2020-11-05 11:03] VITALS: BP 110/76
--- NOTE | 2020-11-05 11:26 | Event Note ---
ED Screening Note ED Screening Note: surapubic cramping a week states she was previously having heavy vaginal bleeding with blood clots but bleeding has stopped states it lasted two days states she has been having lightheadness states she has irregular cycles states she has an appointment in November with [facility] states she last saw [facility] in May 2020, states she has had an irregular pap smear she was previously on depo PMHx PE on xarelto allergy: ibuprofen, tramadol This initial assessment/diagnostic orders/clinical plan/treatment(s) is/are subject to change based on patients health status, clinical progression and re- assessment by fellow clinical providers in the ED. Further treatment and workup at subsequent clinical providers discretion. Patient/guardian urged not to elope from the ED as their condition may be serious if not clinically assessed and managed. Initial orders include: labs, UA, US
[2020-11-05 11:41] LABS: Basophils # (Auto) 0.1 K/mm3 (0.0-0.1); Basophils % (Auto) 0.6 % (0.0-1.8); Eosinophils # (Auto) 0.7 K/mm3 (0.0-0.4); Eosinophils % (Auto) 8.2 % (0.0-4.3); Hematocrit 35.2 % (30.3-42.9); Hemoglobin 12.2 gm/dl (10.1-14.3); Lymphocytes # (Auto) 2.8 K/mm3 (1.2-5.4); Lymphocytes % (Auto) 32.4 % (13.4-35.0); Mean Corpuscular HGB Conc 35 % (30-34); Mean Corpuscular Volume 84 fl (79-97); Monocytes # (Auto) 0.6 K/mm3 (0.0-0.8); Monocytes % (Auto) 6.9 % (0.0-7.3); Platelet Count 285 K/mm3 (140-440); Red Blood Count 4.19 M/mm3 (3.65-5.03); Red Cell Distribution Width 16.5 % (13.2-15.2)
[2020-11-05 11:51] LABS: INR 1.16 (0.87-1.13)
[2020-11-05 11:52] LABS: Partial Thromboplastin Time 31.6 Sec. (24.2-36.6)
[2020-11-05 12:17] LABS: Bilirubin,Urine NEG (Negative); Blood,Urine LG (Negative); Color,Urine Amber (Yellow); Mucus,Urine 3+ /HPF
[2020-11-05 12:21] LABS: Alanine Aminotransferase 9 units/L (7-56); Albumin 3.9 g/dL (3.9-5); Blood Urea Nitrogen 7 mg/dL (7-17); Hemolysis Index 4
[2020-11-05 12:28] LABS: BUN/Creatinine Ratio 12
--- NOTE | 2020-11-05 13:03 | Ultrasound Report ---
ULTRASOUND PELVIS INDICATION / CLINICAL INFORMATION: pelvic pain, heavy bleeding. TECHNIQUE: Transabdominal and Transvaginal. Duplex Color Doppler used: Yes. COMPARISON: None available FINDINGS: UTERUS: Present. - Appearance (if present): No significant abnormality. - Size in cm (if present): 10.4 x 3.0 x 5.7. - Endometrial Complex (if present): No significant abnormality.. Thickness in cm (if measured) = 0.7 - Mass lesions: None. - Additional findings: None. RIGHT ADNEXA: There is a 3.4 c m simple cyst in the right ovary. Normal color Doppler blood flow. LEFT ADNEXA: No significant ovarian cyst or mass. Normal color Doppler blood flow. URINARY BLADDER: No significant abnormality. FREE FLUID: None. ADDITIONAL FINDINGS: None. IMPRESSION: 1. No acute findings. 2. Simple 3 cm right ovarian cyst. This does not require dedicated imaging follow-up in a premenopaus al patient. Signer Name: Sushil Lockett MD Signed: 11/05/2020 12:59 PM Workstation Name: [id number]
== END 2020-11-05 17:30 ==
LOC: ED 10:08
DX: R10.2 Pelvic and perineal pain (principal); N93.9 Abnormal uterine and vaginal bleeding, unspecified; R42 Dizziness and giddiness; Z53.21 Procedure and treatment not carried out due to patient leaving prior to being seen by health care provider
CPT/HCPCS: 36415; 76830; 76856; 80053; 81001; 84703; 85025; 85610; 85730

== ENCOUNTER 2021-05-29 21:55 | Emergency (ER) | payer MEDICAID ==
[2021-05-29 23:23] LABS: Hematocrit 29.6 % (30.3-42.9); Hemoglobin 9.8 gm/dl (10.1-14.3); Mean Corpuscular HGB Conc 33 % (30-34); Mean Corpuscular Volume 82 fl (79-97); Platelet Count 318 K/mm3 (140-440); Red Blood Count 3.63 M/mm3 (3.65-5.03); Red Cell Distribution Width 19.3 % (13.2-15.2)
[2021-05-29 23:37] LABS: Alanine Aminotransferase 14 units/L (7-56); Albumin 3.7 g/dL (3.9-5); BUN/Creatinine Ratio 12; Blood Urea Nitrogen 11 mg/dL (7-17); Calcium 8.9 mg/dL (8.4-10.2); Hemolysis Index 12
[2021-05-29 23:40] LABS: Bilirubin,Direct < 0.2 mg/dL (0-0.2)
[2021-05-29] MEDS: HYDROmorphone 1 MG/1 ML INJ IV ONE (23:55)
[2021-05-29 23:58] LABS: INR TNR (0.87-1.13); Partial Thromboplastin Time TNR Sec. (24.2-36.6)
--- NOTE | 2021-05-30 00:09 | XRay Report ---
CHEST 1 VIEW 05/29/2021 10:59 PM INDICATION / CLINICAL INFORMATION: chest pain. COMPARISON: 08/27/2020 FINDINGS: SUPPORT DEVICES: None. HEART / MEDIASTINUM: No significant abnormality. LUNGS / PLEURA: Slight increased bibasilar opacities. No pneumothorax. ADDITIONAL FINDINGS: No significant additional findings. IMPRESSION: 1. Slight increased basilar opacities as compared to 08/27/2020. This may represent infectious process in the appropriate clinical setting. Signer Name: Jaciel Carlson DO Signed: 05/30/2021 12:05 AM Workstation Name: [id number]
[2021-05-30 01:13] LABS: INR 0.93 (0.87-1.13)
--- NOTE | 2021-05-30 01:51 | Emergency Department Report ---
ED Chest Pain HPI - General Chief Complaint: Chest Pain Stated Complaint: CHEST PAIN/LEGS AND FEET SWELLING Time Seen by Provider: 05/29/21 22:19 Source: EMS Mode of arrival: Stretcher Limitations: No Limitations - History of Present Illness Initial Comments: 40-year-old female, history of fibromyalgia, PE, avascular necrosis of the hips, neuropathy, sciatica, presents to the ED with complaint of pain in bilateral feet. Patient states this started on yesterday. Patient states that she is having pain in bilateral heels, which is making it difficult to walk. Patient states her feet have been somewhat swollen as well. Patient reports onset of chest pain today. States pain is left-sided, no aggravating or alleviating factors. Patient given nitro by EMS. Patient has history of PE. States she is compliant with her Xarelto. Patient states the pain in her feet is what really made her come to the emergency room. MD Complaint: chest pain, other (Bilateral foot pain) -: days(s) (2) Onset: during rest Pain Location: left chest Pain Radiation: none Severity: moderate Severity scale (0 -10): 10 Quality: aching Consistency: constant Improves With: nothing Worsens With: nothing re: denies: nausea, vomting, diaphoresis, dyspnea - Related Data Previous Rx's Medication Instructions Recorded Last Taken Type Acetaminophen/Codeine [Tylenol #3] 1 tab PO Q6H PRN #20 tab 06/18/15 Unknown Rx Ibuprofen [Motrin 800 MG tab] 800 mg PO Q8HR PRN #30 tablet 06/18/15 Unknown Rx Acetaminophen/Codeine [Tylenol 1 tab PO Q6H PRN #12 tab 02/08/20 Unknown Rx /Codeine # 3 tab] Nitrofurantoin [place]/M-Cryst 100 mg PO Q12HR 7 Days #14 capsule 02/08/20 Unknown Rx [Macrobid CAP] HYDROcodone/APAP 5-325 [[place] 1 each PO Q6HR PRN #10 tablet 06/27/20 Unknown Rx 5/325] Furosemide [Lasix] 20 mg PO QDAY 5 Days #5 tablet 05/30/21 Unknown Rx Allergies Allergy/AdvReac Type Severity Reaction Status Date / Time ibuprofen Allergy Bleeding Verified 05/29/21 22:16 tramadol Allergy Itching Verified 05/29/21 22:16 Heart Score - HEART Score History: Slightly suspicious EKG: Normal Age: 45-65 Risk factors: 1-2 risk factors Troponin: < normal limit HEART Score: 2 - EKG Read Time Time EKG Completed: 22:40 EKG Read Time: 22:40 ED Review of Systems ROS: Stated complaint: CHEST PAIN/LEGS AND FEET SWELLING Other details as noted in HPI Comment: All other systems reviewed and negative Respiratory: denies: shortness of breath Cardiovascular: chest pain Musculoskeletal: as per HPI ED Past Medical Hx - Past Medical History Hx Pulmonary Embolism: Yes Hx Asthma: Yes Additional medical history: Fibromyalgia - Surgical History Additional Surgical History: x 2 - Social History Smoking Status: Current Some Day Smoker Substance Use Type: None - Medications Home Medications: Home Medications Medication Instructions Recorded Confirmed Last Taken Type Acetaminophen/Codeine [Tylenol #3] 1 tab PO Q6H PRN #20 tab 06/18/15 Unknown Rx Ibuprofen [Motrin 800 MG tab] 800 mg PO Q8HR PRN #30 tablet 06/18/15 Unknown Rx Acetaminophen/Codeine [Tylenol 1 tab PO Q6H PRN #12 tab 02/08/20 Unknown Rx /Codeine # 3 tab] Nitrofurantoin [place]/M-Cryst 100 mg PO Q12HR 7 Days #14 capsule 02/08/20 Unknown Rx [Macrobid CAP] HYDROcodone/APAP 5-325 [[place] 1 each PO Q6HR PRN #10 tablet 06/27/20 Unknown Rx 5/325] Furosemide [Lasix] 20 mg PO QDAY 5 Days #5 tablet 05/30/21 Unknown Rx ED Physical Exam - General Limitations: No Limitations General appearance: alert, in no apparent distress - Head Head exam: Present: atraumatic, normocephalic - Eye Eye exam: Present: normal appearance, EOMI - ENT ENT exam: Present: mucous membranes moist - Neck Neck exam: Present: normal inspection - Respiratory Respiratory exam: Present: normal lung sounds bilaterally. Absent: respiratory distress - Cardiovascular Cardiovascular Exam: Present: regular rate, normal rhythm - GI/Abdominal GI/Abdominal exam: Present: soft. Absent: distended, tenderness - Extremities Exam Extremities exam: Present: pedal edema, other (Tenderness to bilateral heels, no erythema or open wounds) - Neurological Exam Neurological exam: Present: alert, oriented X3 - Psychiatric Psychiatric exam: Present: normal affect, normal mood - Skin Skin exam: Present: warm, dry, intact, normal color ED Course Vital Signs 05/29/21 05/29/21 22:16 23:55 Temperature 98.6 F Pulse Rate 93 H Respiratory 18 20 Rate Blood Pressure 141/84 [Left] O2 Sat by Pulse 99 Oximetry CARLTON score - Carlton Score Aspirin use within the Past 7 Days: (0) No ED Medical Decision Making - Lab Data Result diagrams: 05/29/21 22:41 05/29/21 22:41 - EKG Data -: EKG Interpreted by Me EKG shows normal: sinus rhythm, axis, intervals, QRS complexes, ST-T waves Rate: normal - EKG Data Interpretation: no acute changes - Radiology Data Radiology results: report reviewed, image reviewed - Medical Decision Making 40-year-old female presents to ED with chest pain and bilateral foot pain. History of PE in the past. Patient compliant with Xarelto. EKG normal. Chest x-ray normal. Troponin and D-dimer both normal as well. Labs are unremarkable. Patient given prescription for low-dose Lasix for her pedal edema. Patient has prescriptions for Percocet and Soma at home. Will not be providing any additional pain medication prescriptions. Patient advised to follow-up with her primary care physician. Return precautions given. - Differential Diagnosis ACS, PE, neuropathy Critical care attestation.: If time is entered above; I have spent that time in minutes in the direct care of this critically ill patient, excluding procedure time. ED Disposition Clinical Impression: Chest pain, Bilateral foot pain, Edema of both feet Disposition: 01 HOME / SELF CARE / HOMELESS Is pt being admited?: No Condition: Stable Instructions: Nonspecific Chest Pain, Adult, Foot Pain Prescriptions: Furosemide [Lasix] 20 mg PO QDAY 5 Days #5 tablet Referrals: PRIMARY CAREMD [Primary Care Provider] - 3-5 Days [facility] [Provider Group] - 3-5 Days Time of Disposition: 01:49
[2021-05-30 01:54] LABS: Anisocytosis 1+; Total Cells Counted 100
[2021-05-30 01:55] LABS: Platelet Estimate Consistent w Auto
[2021-05-30 05:51] VITALS: BP 139/69
--- NOTE | 2021-06-02 10:14 | Electrocardiograph Report ---
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
== END 2021-05-30 02:10 | disposition home or self-care (01) ==
LOC: ED 21:55
DX: R07.9 Chest pain, unspecified (principal); M79.671 Pain in right foot; M79.672 Pain in left foot; M79.89 Other specified soft tissue disorders; J45.909 Unspecified asthma, uncomplicated; M79.7 Fibromyalgia; Z98.890 Other specified postprocedural states; F17.200 Nicotine dependence, unspecified, uncomplicated; Z88.5 Allergy status to narcotic agent; Z88.6 Allergy status to analgesic agent
CPT/HCPCS: 36415; 71045; 80048; 80076; 84484; 84703; 85007; 85025; 85379; 85610; 85730; 93005; 96374; 99284; J1170

== ENCOUNTER 2021-12-19 13:01 | Observation (INO) | payer MEDICAID ==
[2021-12-19 14:46] LABS: INR 0.86 (0.87-1.13)
[2021-12-19 14:47] LABS: Partial Thromboplastin Time 25.2 Sec. (24.2-36.6)
--- NOTE | 2021-12-19 14:52 | XRay Report ---
CHEST 2 VIEWS INDICATION / CLINICAL INFORMATION: chest pain. COMPARISON: 05/29/2021 FINDINGS: SUPPORT DEVICES: None. HEART / MEDIASTINUM: No significant abnormality. LUNGS / PLEURA: No significant pulmonary or pleural abnormality. No pneumothorax. ADDITIONAL FINDINGS: No significant additional findings. IMPRESSION: 1. No acute findings. Signer Name: Sushil Lockett MD Signed: 12/19/2021 2:47 PM Workstation Name: [email or web address]
[2021-12-19 15:01] LABS: Alanine Aminotransferase 9 units/L (7-56); Albumin 4.3 g/dL (3.9-5); Blood Urea Nitrogen 6 mg/dL (7-17); Calcium 9.1 mg/dL (8.4-10.2); Hemolysis Index 14
[2021-12-19 15:09] LABS: BUN/Creatinine Ratio 10; Creatine Kinase MB < 1.0 ng/mL (0.0-4.0)
[2021-12-19 15:15] LABS: Basophils # (Auto) 0.1 K/mm3 (0.0-0.1); Basophils % (Auto) 0.6 % (0.0-1.8); Eosinophils # (Auto) 0.2 K/mm3 (0.0-0.4); Eosinophils % (Auto) 2.7 % (0.0-4.3); Hematocrit 26.7 % (30.3-42.9); Hemoglobin 8.5 gm/dl (10.1-14.3); Lymphocytes # (Auto) 2.9 K/mm3 (1.2-5.4); Lymphocytes % (Auto) 36.2 % (13.4-35.0); Mean Corpuscular HGB Conc 32 % (30-34); Mean Corpuscular Volume 75 fl (79-97); Monocytes # (Auto) 0.5 K/mm3 (0.0-0.8); Monocytes % (Auto) 5.9 % (0.0-7.3); Platelet Count 498 K/mm3 (140-440); Red Blood Count 3.56 M/mm3 (3.65-5.03); Red Cell Distribution Width 19.5 % (13.2-15.2)
[2021-12-19] MEDS ORDERED: ONDANSETRON 4 MG/2 ML INJ IV ONE (18:33)
[2021-12-19] MEDS ORDERED: HYDROmorphone 1 MG/1 ML INJ IV ONE ×2 (18:33→19:26)
[2021-12-19] MEDS ORDERED: NITROGLYCERIN 2% OINT 1 GM TP ONE (18:40)
--- NOTE | 2021-12-19 18:51 | Emergency Department Report ---
HPI - General Chief Complaint: Chest Pain Time Seen by Provider: 12/19/21 18:27 - HPI HPI: Room 7 The patient is a 41-year-old female present with a chief complaint of chest pain. Patient states for the past 3 days she has had substernal chest pain ass ociated with shortness of breath nausea vomiting for the past 3 days. Patient states the pain feels like a pressure in nature and has been intermittent. Patient denies diaphoresis. When asked about pleurisy the patient states "I do not know, I 'm hurting too bad." The patient states she is never had a stress test or cardiac catheterization. Of note the patient was diagnosed with a PE approximately 8 months ago and states she is currently on Xarelto ED Past Medical Hx - Past Medical History Hx Pulmonary Embolism: Yes Hx Asthma: Yes Additional medical history: Fibromyalgia,PE - Surgical History Additional Surgical History: x 2 - Family History Family history: no significant - Social History Smoking Status: Current Every Day Smoker (1/7 pack/day) Substance Use Type: None (Denies illicit drug use) - Medications Home Medications: Home Medications Medication Instructions Recorded Confirmed Last Taken Type Acetaminophen/Codeine [Tylenol #3] 1 tab PO Q6H PRN #20 tab 06/18/15 Unknown Rx Ibuprofen [Motrin 800 MG tab] 800 mg PO Q8HR PRN #30 tablet 06/18/15 Unknown Rx Acetaminophen/Codeine [Tylenol 1 tab PO Q6H PRN #12 tab 02/08/20 Unknown Rx /Codeine # 3 tab] Nitrofurantoin [place]/M-Cryst 100 mg PO Q12HR 7 Days #14 capsule 02/08/20 Unknown Rx [Macrobid CAP] HYDROcodone/APAP 5-325 [[place] 1 each PO Q6HR PRN #10 tablet 06/27/20 Unknown Rx 5/325] Furosemide [Lasix] 20 mg PO QDAY 5 Days #5 tablet 05/30/21 Unknown Rx ED Review of Systems ROS: Stated complaint: CHEST PAIN Other details as noted in HPI Constitutional: denies: diaphoresis Eyes: denies: eye pain ENT: denies: throat pain Respiratory: shortness of breath Cardiovascular: chest pain Endocrine: no symptoms reported Gastrointestinal: nausea, vomiting Genitourinary: denies: dysuria Musculoskeletal: arthralgia Neurological: denies: headache Physical Exam - Physical Exam Vital Signs: Vital Signs 12/19/21 12/19/21 13:09 14:03 Pulse Rate 100 H Respiratory 18 Rate Blood Pressure 150/88 [Right] O2 Sat by Pulse 97 100 Oximetry Physical Exam: GENERAL: The patient is well-developed well-nourished female lying on stretcher appearing to be in moderate discomfort. [] HEENT: Normocephalic. Atraumatic. Extraocular motions are intact. Patient has moist mucous membranes. NECK: Supple. No meningitic signs are noted. There is no adenopathy noted. CHEST/LUNGS: Clear to auscultation. However patient is occasionally tachypneic HEART/CARDIOVASCULAR: Regular. There is no tachycardia. There is no gallop rub or murmur. ABDOMEN: Abdomen is soft, nontender. Patient has normal bowel sounds. There is no abdominal distention. SKIN: There is no rash. There is no edema. There is no diaphoresis. NEURO: The patient is awake, alert, and oriented. The patient is cooperative. The patient has no focal neurologic deficits. The patient has normal speech. GCS MUSCULOSKELETAL: There is no evidence of acute injury. ED Course Vital Signs 12/19/21 12/19/21 13:09 14:03 Pulse Rate 100 H Respiratory 18 Rate Blood Pressure 150/88 [Right] O2 Sat by Pulse 97 100 Oximetry ED Medical Decision Making - Lab Data Result diagrams: 12/19/21 14:16 12/19/21 14:16 - EKG Data -: EKG Interpreted by Me EKG shows normal: sinus rhythm Rate: tachycardia (100 beats per) - EKG Data Interpretation: nonspecific ST-T wave shaji (Flat T wave lead III) - Radiology Data Radiology results: pending (CTA chest), report reviewed (Chest x-ray), image reviewed (Chest x-ray) interpreted by me: Chest x-ray-no definite focal infiltrates, no pneumothorax [facility] [address] [place] [address] X Ray Report Signed Patient: POLI GUERRERO MR#: [id number] : 1980 Acct:[id number] Age/Sex: 41 / F ADM Date: 12/19/21 Loc: ED Attending Dr: Ordering Physician: ED MD ELLEN Date of Service: 12/19/21 Procedure(s): XR chest routine 2V Accession Number(s): [id number] cc: ED DOC, Fluoro Time In Minutes: CHEST 2 VIEWS INDICATION / CLINICAL INFORMATION: chest pain. COMPARISON: 05/29/2021 FINDINGS: SUPPORT DEVICES: None. HEART / MEDIASTINUM: No significant abnormality. LUNGS / PLEURA: No significant pulmonary or pleural abnormality. No pneumothorax. ADDITIONAL FINDINGS: No significant additional findings. IMPRESSION: 1. No acute findings. Signer Name: Sushil Lockett MD Signed: 12/19/2021 2:47 PM Workstation Name: [id number] Transcribed By: CRISTOFER Dictated By: Sushil Lockett MD Electronically Authenticated By: Sushil Lockett MD Signed Date/Time: 12/19/211446 DD/ 46 TD/TT: - Differential Diagnosis ACS, PE, pericarditis, GERD, fibromyalgia Critical care attestation.: If time is entered above; I have spent that time in minutes in the direct care of this critically ill patient, excluding procedure time. ED Disposition Clinical Impression: Chest pain Disposition: ADMITTED INPATIENT Is pt being admited?: Yes Does the pt Need Aspirin: Yes Condition: Stable Instructions: Nonspecific Chest Pain, Adult Time of Disposition: 21:22 (Case discussed with hospitalist) Heart Score - HEART Score History: Highly suspicious EKG: Non-specific Age: < 45 Risk factors: 1-2 risk factors Troponin: < normal limit HEART Score: 4 - EKG Read Time Time EKG Completed: 14:11 EKG Read Time: 18:54
[2021-12-19] MEDS ORDERED: fentaNYL 100 MCG/2 ML INJ IV ONE (20:14)
[2021-12-19] MEDS ORDERED: diphenhydrAMINE 50 MG/ML VIAL IV ONE (20:14)
--- NOTE | 2021-12-19 20:19 | Vascular Lab Report ---
DUPLEX DOPPLER LOWER EXTREMITY VEINS, LEFT INDICATION / CLINICAL INFORMATION: LLE SWELLING. TECHNIQUE: Duplex doppler imaging was performed through the veins of the left lower extremity using v enous compression and other maneuvers. COMPARISON: None available. FINDINGS: LEFT COMMON FEMORAL VEIN: Negative. LEFT FEMORAL VEIN: Negative. LEFT POPLITEAL VEIN: Negative. LEFT CALF VEINS: Negative. ADDITIONAL FINDINGS: No abnormal mass or fluid collection is seen. IMPRESSION: No sonographic evidence for DVT in the left lower extremity. Signer Name: Toñito Streeter MD Signed: 12/19/2021 8:14 PM Workstation Name: [id number]
[2021-12-19] MEDS ORDERED: ASPIRIN 325 MG TAB PO ONE (21:23)
--- NOTE | 2021-12-19 21:49 | History and Physical Report ---
History of Present Illness Date of examination: 12/19/21 Date of admission: 12/19/2021 Chief complaint: Chest Pain History of present illness: 41-year-old -[place] female with known history of fibromyalgia, history of pulmonary embolism on Xarelto presents to the emergency room today complaining of chest pain. Chest pain is said to be substernal and has been ongoing for the past 3 days. She has had associated shortness of breath, nausea and vomiting. Chest pain felt like pressure has been intermittent. She denies any headache or dizziness denies any diaphoresis. Patient was diagnosed with pulmonary embolism about 8 months ago and has been compliant with anticoagulation with Xarelto. She denies any illicit drug use however she is a current daily tobacco smoker. Work-up in the emergency room today, EKG showed nonspecific ST-T wave changes. Chest x-ray was unremarkable. Lab reveals a mildly elevated D-dimer. CT angiogram was negative for pulmonary embolism. Patient is being admitted to be evaluated for chest pain. Past History Past Medical History: pulmonary embolism, other (Fibromyalgia,Asthma) Past Surgical History: Social history: smoking (Current Every day smoker) Family history: no significant family history Medications and Allergies Allergies Allergy/AdvReac Type Severity Reaction Status Date / Time ibuprofen Allergy Bleeding Verified 05/29/21 22:16 tramadol Allergy Itching Verified 05/29/21 22:16 Home Medications Medication Instructions Recorded Confirmed Last Taken Type Acetaminophen/Codeine [Tylenol #3] 1 tab PO Q6H PRN #20 tab 06/18/15 Unknown Rx Ibuprofen [Motrin 800 MG tab] 800 mg PO Q8HR PRN #30 tablet 06/18/15 Unknown Rx Acetaminophen/Codeine [Tylenol 1 tab PO Q6H PRN #12 tab 02/08/20 Unknown Rx /Codeine # 3 tab] Nitrofurantoin [place]/M-Cryst 100 mg PO Q12HR 7 Days #14 capsule 02/08/20 Unknown Rx [Macrobid CAP] HYDROcodone/APAP 5-325 [[place] 1 each PO Q6HR PRN #10 tablet 06/27/20 Unknown Rx 5/325] Furosemide [Lasix] 20 mg PO QDAY 5 Days #5 tablet 05/30/21 Unknown Rx Review of Systems Constitutional: no fever, no chills Ears, nose, mouth and throat: no nasal congestion, no sore throat Cardiovascular: chest pain, no palpitations Respiratory: no cough, no shortness of breath Gastrointestinal: no abdominal pain, no nausea, no vomiting, no diarrhea Genitourinary Female: no dysuria, no hematuria Musculoskeletal: no neck pain, no low back pain Integumentary: no rash, no pruritis Neurological: no headaches, no confusion Psychiatric: no anxiety, no depression Endocrine: no polyphagia, no polydipsia, no polyuria Exam - Constitutional Vitals: Temp Pulse Resp BP Pulse Ox 100 H 18 150/88 100 12/19/21 13:09 12/19/21 13:12/19/21 13:12/19/21 14:03 General appearance: Present: no acute distress, well-nourished - EENT Eyes: Present: PERRL, EOM intact. Absent: scleral icterus ENT: hearing intact, clear oral mucosa, dentition normal - Neck Neck: Present: supple, normal ROM - Respiratory Respiratory effort: normal Respiratory: bilateral: CTA - Cardiovascular Rhythm: regular Heart Sounds: Present: S1 & S2. Absent: gallop, systolic murmur, diastolic murmur, rub, click - Extremities Extremities: no ischemia, pulses intact, pulses symmetrical, No edema, normal temperature, normal color, Full ROM Peripheral Pulses: within normal limits - Abdominal General gastrointestinal: Present: soft, non-tender, non-distended, normal bowel sounds. Absent: mass - Integumentary Integumentary: Present: clear, warm, dry, normal turgor. Absent: rash - Musculoskeletal Musculoskeletal: strength equal bilaterally - Psychiatric Psychiatric: appropriate mood/affect, intact judgment & insight, memory intact, cooperative - Neurologic Neurologic: CNII-XII intact, no focal deficits, moves all extremities HEART Score - HEART Score EKG: Non-specific Age: < 45 Risk factors: 1-2 risk factors Troponin: Troponin T < 0.010 ng/mL (0.00-0.029) 12/19/21 19:25 Troponin: < normal limit Results - Labs CBC & Chem 7: 12/19/21 14:16 12/19/21 22:38 Labs: Abnormal lab results 12/19/21 12/19/21 12/19/21 Range/Units 14:16 14:16 14:23 RBC 3.56 L (3.65-5.03) M/mm3 Hgb 8.5 L (10.1-14.3) gm/dl Hct 26.7 L (30.3-42.9) % MCV 75 L (79-97) fl MCH 24 L (28-32) pg RDW 19.5 H (13.2-15.2) % Plt Count 498 H (140-440) K/mm3 Lymph % (Auto) 36.2 H (13.4-35.0) % INR 0.86 L (0.87-1.13) D-Dimer (0-234) ng/mlDDU Sodium 136 L (137-145) mmol/L BUN 6 L (7-17) mg/dL 12/19/21 Range/Units 19:17 RBC (3.65-5.03) M/mm3 Hgb (10.1-14.3) gm/dl Hct (30.3-42.9) % MCV (79-97) fl MCH (28-32) pg RDW (13.2-15.2) % Plt Count (140-440) K/mm3 Lymph % (Auto) (13.4-35.0) % INR (0.87-1.13) D-Dimer 352.81 H (0-234) ng/mlDDU Sodium (137-145) mmol/L BUN (7-17) mg/dL Assessment and Plan - Patient Problems (1) Chest pain Current Visit: Yes Status: Acute Plan to address problem: Patient admitted and placed on telemetry. We will check serial cardiac enzymes. Patient placed on daily aspirin, sublingual nitroglycerin and IV morphine as needed for chest pain. We will schedule patient for stress test and echocardiogram. (2) History of pulmonary embolism Current Visit: Yes Status: Acute Plan to address problem: She was diagnosed with pulmonary embolism about 8 months ago Patient currently on Xarelto. (3) DVT prophylaxis Current Visit: Yes Status: Acute Plan to address problem: Patient currently on anticoagulation with Xarelto. (4) Full code status Current Visit: Yes Status: Acute Plan to address problem: Patient is full code.
[2021-12-19] MEDS ORDERED: ONDANSETRON 4 MG/2 ML INJ IV PRN (21:51)
[2021-12-19] MEDS ORDERED: MAGNESIUM HYDROXIDE (MOM) ORAL LIQD UDC PO PRN (21:51)
[2021-12-19] MEDS ORDERED: MORPHINE 4 MG/1 ML INJ IV PRN (21:51)
[2021-12-19] MEDS ORDERED: NITROGLYCERIN 0.4 MG TAB SUBL SL PRN (21:51)
[2021-12-19] MEDS ORDERED: ACETAMINOPHEN 325 MG TAB PO PRN ×2 (21:51)
[2021-12-19] MEDS ORDERED: MORPHINE 2 MG/1 ML INJ IV PRN (21:51)
[2021-12-19] MEDS ORDERED: traMADol 50 MG TAB PO PRN (21:51)
--- NOTE | 2021-12-19 21:52 | Cat Scan Report ---
CTA CHEST WITH CONTRAST INDICATION / CLINICAL INFORMATION: Chest pain, shortness of breath. h/o PE. TECHNIQUE: Axial CT images were obtained through the chest after injection of 100 cc Omnipaque 350 IV contrast. 3 plane MIP and/or 3D reconstructions were produced. All CT scans at this location are per formed using CT dose reduction for ALARA by means of automated exposure control. COMPARISON: 2 views of the chest performed today. CTA chest from 06/27/2020. FINDINGS: PULMONARY EMBOLUS: None. THORACIC AORTA: No significant abnormality. HEART: No significant abnormality. CORONARY ARTERY CALCIFICATION: Absent -- None. MEDIASTINUM / JOEY: No significant abnormality. PLEURA: No pleural effusion. No pneumothorax. LUNGS: No acute air space or interstitial disease. No suspicious nodule or mass. ADDITIONAL FINDINGS: None. UPPER ABDOMEN: No acute findings. SKELETAL STRUCTURES: No significant osseous abnormality. IMPRESSION: 1. No CT evidence for pulmonary embolism. 2. No acute findings. Signer Name: Ciro Schultz MD Signed: 12/19/2021 9:48 PM Workstation Name: [id number]
[2021-12-19 23:22] LABS: Blood Urea Nitrogen 5 mg/dL (7-17); Calcium 8.9 mg/dL (8.4-10.2); Hemolysis Index 8
[2021-12-19 23:28] LABS: BUN/Creatinine Ratio 7
[2021-12-20] MEDS: MORPHINE 4 MG/1 ML INJ IV PRN ×2 (00:16→10:39)
[2021-12-20] MEDS: HEPARIN 5,000 UNIT/1 ML VIAL SUB-Q SCH ×2 (01:17→05:48)
[2021-12-20 07:02] LABS: BUN/Creatinine Ratio 8; Blood Urea Nitrogen 5 mg/dL (7-17); Calcium 8.9 mg/dL (8.4-10.2); Hemolysis Index 1
[2021-12-20] MEDS ORDERED: REGADENOSON 0.4 MG/5 ML INJ IV ONE (07:08)
[2021-12-20 07:39] VITALS: BP 138/78
[2021-12-20] MEDS ORDERED: NICOTINE 7 MG/24 HR PATCH TD SCH (10:00)
[2021-12-20] MEDS ORDERED: ASPIRIN EC 325 MG TAB PO SCH (10:00)
[2021-12-20] MEDS ORDERED: IBUPROFEN 800 MG TAB PO SCH (11:00)
--- NOTE | 2021-12-20 11:24 | Nuclear Medicine Report ---
APPROVED REPORT Exam: Nuclear Stress Test Indication: Chest pain [facility] Ht: 5 ft 2 in Wt: 71449 lbs BSA: 11.26 m2 HR: 84 bpmBP: 116/66 mmHgBMI: 2374.54 Rhythm: SINUS RHYTHM, IRBBB, NS ST ELEVATION Stress Test Details Stress Test: Pharmacologic stress testing performed using 0.4 mg of regadenoson per 5 mL given IV over 10 seconds. Reason for pharmacologic stress test: physical limitation. HR Resting HR: 84 bpm Max HR Achieved: 130 bpm Max Heart Rate (APMHR): 177.771944 bpm Target HR (85% APMHR): 150.229981 bpm % of APMHR: 73.45 Recovery HR: 124 bpm BP Resting BP: 116/66 mmHg Max BP: 141/83 mmHg Recovery BP: 126/78 mmHg ECG Resting ECG: Sinus Rhythm Stress ECG: Sinus Tachycardia Clinical Reason for Termination: Completed protocol Stress Symptoms: None NM EXAM: Myocardial Perfusion REST/STRESS Imaging Protocol: Rest Tc-99m/Stress Tc-99m 1 day Resting Data Rest SPECT myocardial perfusion imaging was performed in supine position 45 minutes following the intravenous injection of mCi of Time of rest injection: 0700 Pharmacologic Stress Pharmacologic stress test was performed by injecting Regadenoson 0.4 mg IV push followed by the intravenous injection of 28 mCi of Tc-99m Myoview. Time of stress injection: 09:16:21 Gated Stress SPECT was performed 30 minutes after stress injection. The images were gated to evaluate regional wall motion and calculate left ventricular ejection fraction. Study Quality Study: excellent Lung Uptake: Normal Study Data TID = 1.29. Perfusion Wall Motion The rest and stress images show normal left ventricular wall motion. Nuclear Conclusion ECG Findings: negative for ischemia Clinical Findings: negative for ischemia Nuclear Findings: negative for ischemia Exercise Capacity: not assessed Left Ventricular Function: normal Normal study. No scintigraphic evidence for myocardial ischemia or scar. Normal left ventricular size and function with no regional wall motion abnormalities.
--- NOTE | 2021-12-20 11:34 | Consultation ---
History of Present Illness Consult date: 12/20/21 Requesting physician: BRANDI BRIONES Consult reason: chest pain History of present illness: Patient is a 41-year-old female with a past medical history of pulmonary embolisms, fibromyalgia, avascular bilateral hip necrosis, and GERD presented to the ED with a complaint of chest pain x3 to 4 days. Patient states in this timeframe she has had some substernal chest pain associated with shortness of breath. She says that the pain is intermittent and previously lasted for hours however the pain has slowly been subsiding and lasting for a short duration of time. Per patient pain is worse with palpation. Patient also reports chronic headaches and left arm numbness and tingling. Patient denies shortness of breath, nausea, vomiting, diaphoresis, palpitations, lightheadedness. Patient is previously unknown to our practice. Cardiology is consulted for chest pain Past History Past Medical History: pulmonary embolism, other (Fibromyalgia,Asthma, bilateral avascular hip necrosis) Past Surgical History: Social history: smoking (Current Every day smoker) Family history: no significant family history Medications and Allergies Allergies Allergy/AdvReac Type Severity Reaction Status Date / Time ibuprofen Allergy Bleeding Verified 05/29/21 22:16 tramadol Allergy Itching Verified 05/29/21 22:16 Home Medications Medication Instructions Recorded Confirmed Last Taken Type Acetaminophen/Codeine [Tylenol #3] 1 tab PO Q6H PRN #20 tab 06/18/15 12/20/21 12/16/21 10:00 Rx Ibuprofen [Motrin 800 MG tab] 800 mg PO Q8HR PRN #30 tablet 06/18/15 12/20/21 12/19/21 20:00 Rx Acetaminophen/Codeine [Tylenol 1 tab PO Q6H PRN #12 tab 02/08/20 12/20/21 12/16/21 09:00 Rx /Codeine # 3 tab] Nitrofurantoin [place]/M-Cryst 100 mg PO Q12HR 7 Days #14 capsule 02/08/20 12/20/21 12/19/21 20:00 Rx [Macrobid CAP] HYDROcodone/APAP 5-325 [[place] 1 each PO Q6HR PRN #10 tablet 06/27/20 12/20/21 Unknown Rx 5/325] Furosemide [Lasix] 20 mg PO QDAY 5 Days #5 tablet 05/30/21 12/20/21 12/19/21 20:00 Rx Active Meds: Active Medications Acetaminophen (Acetaminophen 325 Mg Tab) 650 mg PO Q4H PRN PRN Reason: Pain MILD(1-3)/Fever >100.5/PALACIOS Aspirin (Aspirin Ec 325 Mg Tab) 325 mg PO QDAY [facility] Last Admin: 12/20/21 10:39 Dose: 325 mg Ibuprofen (Ibuprofen 800 Mg Tab) 800 mg PO BID [facility] Magnesium Hydroxide (Magnesium Hydroxide (Mom) Oral Liqd Udc) 30 ml PO Q4H PRN PRN Reason: Constipation Morphine Sulfate (Morphine 4 Mg/1 Ml Inj) 2 mg IV Q5MIN PRN PRN Reason: Chest Pain unrelieved by NTG Morphine Sulfate (Morphine 4 Mg/1 Ml Inj) 4 mg IV Q4H PRN PRN Reason: Pain , Severe (7-10) Last Admin: 12/20/21 10:39 Dose: 4 mg Nicotine (Nicotine 7 Mg/24 Hr Patch) 7 mg TD QDAY [facility] Last Admin: 12/20/21 11:18 Dose: 7 mg Nitroglycerin (Nitroglycerin 0.4 Mg Tab Subl) 0.4 mg SL Q5M PRN PRN Reason: Chest Pain Ondansetron HCl (Ondansetron 4 Mg/2 Ml Inj) 4 mg IV Q8H PRN PRN Reason: Nausea And Vomiting Oxycodone/Acetaminophen (Oxycodone /Acetaminophen 5-325mg Tab) 2 tab PO Q6H PRN PRN Reason: Pain, Moderate (4-6) Rivaroxaban (Rivaroxaban 20 Mg Tab) 20 mg PO QPMDIAB [facility]; Protocol Sodium Chloride (Sodium Chloride 0.9% 10 Ml Flush Syringe) 10 ml IV PRN PRN PRN Reason: LINE FLUSH Sodium Chloride (Sodium Chloride 0.9% 10 Ml Flush Syringe) 10 ml IV BID [facility] Last Admin: 12/20/21 10:41 Dose: 10 ml Review of Systems Constitutional: no weight loss, no weight gain, no fever Ears, nose, mouth and throat: no nasal discharge, no sinus pressure, no sinus pain Cardiovascular: chest pain, no orthopnea, no palpitations, no syncope, no dyspnea on exertion Respiratory: no shortness of breath, no dyspnea on exertion Gastrointestinal: no abdominal pain, no nausea, no vomiting Musculoskeletal: arm numbness/tingling (left upper extremity), other (Hip pain) Integumentary: no rash, no pruritis, no redness Neurological: no head injury, no transient paralysis Psychiatric: no anxiety, no memory loss Endocrine: no cold intolerance, no heat intolerance Hematologic/Lymphatic: no easy bruising, no easy bleeding Physical Examination Vital Signs Pulse Resp BP Pulse Ox 100 H 18 150/88 97 12/19/21 13:09 12/19/21 13:09 12/19/21 13:12/19/21 13:09 General appearance: no acute distress HEENT: Positive: Normocephaly Cardiac: Positive: Reg Rate and Rhythm Lungs: Positive: Normal Breath Sounds Neuro: Positive: Grossly Intact Abdomen: Positive: Soft, Active Bowel Sounds Skin: Negative: Rash, Suspicious Lesions, Ulceration Extremities: Present: upper extr. pulses. Absent: edema Results 12/19/21 14:16 12/20/21 05:42 Cardiac Enzymes 12/19/21 Range/Units 14:16 AST 14 (5-40) units/L CK-MB (CK-2) < 1.0 (0.0-4.0) ng/mL Coagulation 12/19/21 Range/Units 14:23 PT 12.6 (12.2-14.9) Sec. INR 0.86 L (0.87-1.13) APTT 25.2 (24.2-36.6) Sec. CBC 12/19/21 Range/Units 14:16 WBC 7.9 (4.5-11.0) K/mm3 RBC 3.56 L (3.65-5.03) M/mm3 Hgb 8.5 L (10.1-14.3) gm/dl Hct 26.7 L (30.3-42.9) % Plt Count 498 H (140-440) K/mm3 Lymph # (Auto) 2.9 (1.2-5.4) K/mm3 [place] # (Auto) 0.5 (0.0-0.8) K/mm3 Eos # (Auto) 0.2 (0.0-0.4) K/mm3 Baso # (Auto) 0.1 (0.0-0.1) K/mm3 Comprehensive Metabolic Panel 12/19/21 12/19/21 12/20/21 Range/Units 14:16 22:38 05:42 Sodium 136 L 138 138 (137-145) mmol/L Potassium 4.1 4.7 4.4 (3.6-5.0) mmol/L Chloride 100.3 103.4 104.2 (98-107) mmol/L Carbon Dioxide 24 22 22 (22-30) mmol/L BUN 6 L 5 L 5 L (7-17) mg/dL Creatinine 0.6 0.7 0.6 (0.6-1.2) mg/dL Glucose 91 115 H 92 (65-100) mg/dL Calcium 9.1 8.9 8.9 (8.4-10.2) mg/dL AST 14 (5-40) units/L ALT 9 (7-56) units/L Alkaline Phosphatase 89 (35-129) units/L Total Protein 6.3 (6.3-8.2) g/dL Albumin 4.3 (3.9-5) g/dL - Imaging and Cardiology Echo: report reviewed EKG interpretations - Telemetry EKG Rhythm: Sinus Rhythm - EKG Sinus rhythms and dysrhythmias: sinus rhythm Assessment and Plan Patient is a 41-year-old female with a past medical history of pulmonary embolisms, fibromyalgia, avascular bilateral hip necrosis, and GERD presented to the ED with a complaint of chest pain x3 to 4 days. Chest pain Avascular hip necrosis-follows with outpatient Ortho Fibromyalgia Elevated D-dimer-CT negative for PE H/o PE Lexiscan MPI stress test 12/20/2021-normal study with no scintigraphic evidence of myocardial ischemia or scar Echo 12/19/2021-EF 55 to 60%. Mild diastolic dysfunction present impaired relaxation pattern. Right ventricular systolic function is normal. No aortic regurgitation. No mitral regurgitation. Plan: EKG shows sinus rhythm 85 no acute ischemic changes. Troponin negative x3. AMI ruled out Patient had normal echo and stress test today. Results noted above Will resume outpatient anticoagulation with Xarelto Cardiac status otherwise stable Patient seen in conjunction with Dr. Koenig who agrees with this plan of care - Patient Problems (1) Chest pain Current Visit: Yes Status: Acute (2) History of pulmonary embolism Current Visit: Yes Status: Acute
[2021-12-20] MEDS ORDERED: oxyCODONE /ACETAMINOPHEN 5-325MG TAB PO PRN (12:00)
[2021-12-20 14:07] LABS: Hematocrit 26.2 % (30.3-42.9); Hemoglobin 8.7 gm/dl (10.1-14.3); Mean Corpuscular HGB Conc 33 % (30-34); Mean Corpuscular Volume 75 fl (79-97); Platelet Count 495 K/mm3 (140-440); Red Blood Count 3.52 M/mm3 (3.65-5.03); Red Cell Distribution Width 19.3 % (13.2-15.2)
[2021-12-20 14:19] LABS: INR 0.87 (0.87-1.13); Partial Thromboplastin Time 25.5 Sec. (24.2-36.6)
--- NOTE | 2021-12-20 15:02 | Discharge Summary ---
Providers - Providers Date of Admission: 12/19/21 21:52 Date of discharge: 12/20/21 Attending physician: ADEN NGUYEN MD 12/19/21 Consult to Cardiac Rehabilitation [CONS] Routine Reason For Exam: Phase I 12/19/21 21:52 Consult to Cardiology [CONS] Routine Consulting Provider: PHOENIX AGUILERA Reason For Exam: Chest pain 12/20/21 11:19 Physical Therapy Evaluation and Treat [CONS] Routine Comment: Reason For Exam: evaluate gait Primary care physician: CLASSIFICATION CASE MANAGER Hospitalization Reason for admission: ACS rule out Condition: Stable Hospital course: 41-year-old female history of fibromyalgia, pulmonary embolism on Xarelto who presented to the emergency department with complaints of substernal chest pain x3 days. CT angiogram of the chest was negative for acute findings and for pulmonary embolism. Duplex of the left lower extremity was negative for DVT. Cardiology was consulted. Echocardiogram showed normal ejection fraction with mild diastolic dysfunction. Nuclear stress test was negative for ischemia. She was discharged once work-up was complete. Disposition: 01 HOME / SELF CARE / HOMELESS Final Discharge Diagnosis (Prints w/discharge instructions): Noncardiac chest pain. History of pulmonary embolism on anticoagulation. Fibromyalgia. History of avascular necrosis. GERD Core Measure Documentation - Palliative Care Palliative Care/ Comfort Measures: Not Applicable - Core Measures Any of the following diagnoses?: none Exam - Physical Exam Narrative exam: GENERAL: Well-developed well-nourished. Appearing to be in discomfort secondary to chronic pain. HEENT: Normocephalic. Atraumatic. NECK: Supple. CHEST/LUNGS: CTAB on room air HEART/CARDIOVASCULAR: RRR. No murmur, rubs or gallops appreciated. ABDOMEN: +BS. NT/ND. SKIN: No rashes noted. NEURO: No focal motor deficit. Follows all commands and is ambulatory. MUSCULOSKELETAL: No joint effusion EXTREMITIES: No cyanosis, clubbing or edema. PSYCH: Cooperative. - Constitutional Vitals: Temp Pulse Resp BP Pulse Ox 98.2 F 89 16 138/78 100 12/20/21 07:37 12/20/21 07:37 12/20/21 10:39 12/20/21 07:37 12/20/21 07:37 Plan Care Plan Goals: Please continue to take your Xarelto as prescribed. Your echocardiogram and stress test were negative for any issues with your heart. Please make sure to schedule an appointment with hematology as suggested by orthopedic surgery so that you can get your hips fixed. Also have your primary care doctor to refer you to a pain specialist in the community. Follow up with: PRIMARY CARE,MD [Primary Care Provider] - 3-5 Days Prescriptions: Aspirin EC [Ecotrin] 325 mg PO QDAY 30 Days #30 tablet oxyCODONE /ACETAMINOPHEN [Percocet 5/325 mg] 2 tab PO Q6H PRN 3 Days #24 tablet PRN Reason: Pain , Severe (7-10) Rivaroxaban [Xarelto] 20 mg PO QPMDIAB 30 Days #60 tablet
[2021-12-20] MEDS ORDERED: RIVAROXABAN 20 MG TAB PO SCH (17:00)
--- NOTE | 2021-12-27 17:43 | Electrocardiograph Report ---
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
--- NOTE | 2021-12-27 17:51 | Electrocardiograph Report ---
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
--- NOTE | 2021-12-27 17:53 | Electrocardiograph Report ---
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
== END 2021-12-20 16:00 | disposition home or self-care (01) ==
LOC: ED 13:01 → INTOOBSV 21:52 → 4A 21:52
PROVIDERS: ADMIT Internal Medicine Geriatric Medicine; ATTEND Student in an Organized Health Care Education/Training Program
DX: R07.89 Other chest pain (principal); J45.909 Unspecified asthma, uncomplicated; M79.7 Fibromyalgia; F17.200 Nicotine dependence, unspecified, uncomplicated; Z86.711 Personal history of pulmonary embolism; Z98.891 History of uterine scar from previous surgery
CPT/HCPCS: 36415; 71046; 71275; 78452; 80048; 80053; 82550; 82553; 82565; 83880; 84484; 85025; 85027; 85379; 85610; 85730; 93005; 93017; 93971; 96372; 96374; 96375; 96376; 97162; 99285; A9502; C8929; G0378; J1170; J1200; J1644; J2270; J2405; J2785; J3010; Q9967; 93306